=== PATIENT | female | born 1985 | race Caucasian/White ===

== ENCOUNTER 2017-07-11 23:26 | Emergency (ER) | payer SELFPAY ==
[~2017-07-11] VITALS: Ht 157.5 cm; Wt 66.0 kg
[~2017-07-11 23:26] MED LIST: CIPR750T10 PO; LORTA5 PO
[2017-07-11 23:28] VITALS: BP 103/57; PULSE 124; RESP 16; TEMP 102.4; O2SAT 99
--- NOTE | 2017-07-12 02:20 | PD ---
HPI Chief Complaint: Skin Problem Time Seen by Provider: 02:15 Travel History International Travel<30 days: No Contact w/Intl Traveler<30days: No Traveled to known affect area: No History of Present Illness HPI Patient has a abscess on the extensor aspect of her right forearm with an eschar in the center. Possibly from IVDA abuse, PT HAS FEVER AT TRIAGE OF 102 WITH NO OTHER SOURCE FOR FEVER DENIES SORE THROAT AND NO URI OR UTI SYMPTOMS , She has abscess 4 cm raised tender PFSH Past Medical History Autoimmune Disease: No Cancer: No Cardiovascular Problems: No Diminished Hearing: No Endocrine: No Genitourinary: No Immune Disorder: No Musculoskeletal: No Neurologic: No Psychiatric: No Reproductive: No Respiratory: No ?: Unknown : 3 Para: 2 Tubal Ligation: Yes Past Surgical History AICD: No Arteriovenous Shunt: No Section: Yes Gynecologic Surgery: Yes (tubal ligation) Insulin Pump: No Joint Replacement: No Pacemaker: No Other Surgery: Yes Social History Alcohol Use: No (denies) Tobacco Use: No (denies current use) Substance Use: Yes (HEROIN IV) Allergies-Medications (Allergen,Severity, Reaction): Coded Allergies: cyclobenzaprine (Unverified Allergy, Severe, N/V, 07/11/17) Reported Meds & Prescriptions Reported Meds & Active Scripts Active Ibuprofen 600 Mg Tab 600 Mg PO Q6H PRN Clindamycin (Clindamycin HCl) 300 Mg Cap 300 Mg PO TID Review of Systems Except as stated in HPI: all other systems reviewed are Neg Skin: Positive Other (abscess right forearm) Physical Exam Narrative GENERAL: somnolent arm abscess fever 102 SKIN: Warm and dry. HEAD: Atraumatic. Normocephalic. EYES: Pupils equal and round. No scleral icterus. No injection or drainage. ENT: No nasal bleeding or discharge. Mucous membranes pink and moist. NECK: Trachea midline. No JVD. CARDIOVASCULAR: Regular rate and rhythm. RESPIRATORY: No accessory muscle use. Clear to auscultation. Breath sounds equal bilaterally. GASTROINTESTINAL: Abdomen soft, non-tender, nondistended. Hepatic and splenic margins not palpable. MUSCULOSKELETAL: Extremities right arm abscess 4 cm extensor surface. NEUROLOGICAL: Awake and alert. No obvious cranial nerve deficits. Motor grossly within normal limits. Five out of 5 muscle strength in the arms and legs. Normal speech. PSYCHIATRIC: Appropriate mood and affect; insight and judgment normal. Data Data Last Documented VS Vital Signs Date Time Temp Pulse Resp B/P (MAP) Pulse Ox O2 Delivery O2 Flow Rate FiO2 07/12/17 04:50 99.9 07/12/17 02:59 115 20 99 Room Air Orders Orders Complete Blood Count With Diff (07/12/17 03:00) Comprehensive Metabolic Panel (07/12/17 03:00) Lactic Acid (07/12/17 03:00) Vancomycin Inj (Vancomycin Inj) (07/12/17 03:30) Acetaminophen (Tylenol) (07/12/17 03:45) Ketorolac Inj (Toradol Inj) (07/12/17 04:15) Labs Laboratory Tests Test 07/12/17 03:15 White Blood Count 11.1 TH/MM3 Red Blood Count 3.92 MIL/MM3 Hemoglobin 10.4 GM/DL Hematocrit 31.3 % Mean Corpuscular Volume 79.8 FL Mean Corpuscular Hemoglobin 26.4 PG Mean Corpuscular Hemoglobin Concent 33.1 % Red Cell Distribution Width 15.6 % Platelet Count 394 TH/MM3 Mean Platelet Volume 7.6 FL Neutrophils (%) (Auto) 80.2 % Lymphocytes (%) (Auto) 12.9 % Monocytes (%) (Auto) 6.3 % Eosinophils (%) (Auto) 0.2 % Basophils (%) (Auto) 0.4 % Neutrophils # (Auto) 8.9 TH/MM3 Lymphocytes # (Auto) 1.4 TH/MM3 Monocytes # (Auto) 0.7 TH/MM3 Eosinophils # (Auto) 0.0 TH/MM3 Basophils # (Auto) 0.0 TH/MM3 CBC Comment DIFF FINAL Differential Comment Blood Urea Nitrogen 10 MG/DL Creatinine 0.96 MG/DL Random Glucose 101 MG/DL Total Protein 7.4 GM/DL Albumin 2.8 GM/DL Calcium Level 8.4 MG/DL Alkaline Phosphatase 109 U/L Aspartate Amino Transf (AST/SGOT) 34 U/L Alanine Aminotransferase (ALT/SGPT) 19 U/L Total Bilirubin 1.0 MG/DL Sodium Level 132 MEQ/L Potassium Level 4.2 MEQ/L Chloride Level 98 MEQ/L Carbon Dioxide Level 27.8 MEQ/L Anion Gap 6 MEQ/L Estimat Glomerular Filtration Rate 67 ML/MIN Lactic Acid Level 0.9 mmol/L MDM Medical Decision Making Medical Screen Exam Complete: Yes Emergency Medical Condition: Yes Differential Diagnosis abscess vs cellulitis vs insect bite vs IVDA accident other FB needle Narrative Course I and D with wick packing and covered with gauze and 1 dose Vanco 1 gram and clindamycin PO and 48 hr wound check wick removal Diagnosis Primary Impression: Abscess Patient Instructions: Abscess (ED), General Instructions Additional Instructions: Take the clindamycin 3 times a day for 10 day Come back to the ER in 2 days to have the wick removed from your abscess . In 2 days come to ER for a wound check by the ER.. Leave the wick in place for 2 days and to come back to ER . Scripts Lactobacillus (Acidophilus Probiotic) 100 Mg (1 Billion Cell) Cap 1 CAP PO TID, #30 Prov: Agustin Rain MD 07/12/17 Ibuprofen (Ibuprofen) 600 Mg Tab 600 MG PO Q6H Y for Pain/Inflammation, #40 TAB 0 Refills Prov: Agustin Rain MD 07/12/17 Clindamycin (Clindamycin) 300 Mg Cap 300 MG PO TID for Infection, #30 CAP 0 Refills Prov: Agustin Rain MD 07/12/17 Disposition: 01 DISCHARGE HOME Condition: Critical Agustin Rain MD Jul 12, 2017 02:20
[2017-07-12 02:59] VITALS: PULSE 115; RESP 20; TEMP 103; O2SAT 99
[2017-07-12 03:30] LABS: AUTOMATED NEUTROPHIL # 8.9 TH/MM3 (1.8-7.7); BASOPHIL % 0.4 % (0.0-2.0); EOSINOPHIL % 0.2 % (0.0-4.0); HEMATOCRIT 31.3 % (35.0-46.0); HEMOGLOBIN 10.4 GM/DL (11.6-15.3); LYMPH % 12.9 % (9.0-44.0); LYMPHOCYTE # 1.4 TH/MM3 (1.0-4.8); MEAN CELL VOLUME 79.8 FL (80.0-100.0); MEAN CORPUSCULAR HEMOGLOBIN 26.4 PG (27.0-34.0); MEAN CORPUSCULAR HGB CONC 33.1 % (32.0-36.0); MEAN PLATELET VOLUME 7.6 FL (7.0-11.0); MONO % 6.3 % (0.0-8.0); MONOCYTE # 0.7 TH/MM3 (0-0.9); NEUT % 80.2 % (16.0-70.0); PLATELET COUNT 394 TH/MM3 (150-450); RED BLOOD COUNT 3.92 MIL/MM3 (4.00-5.30); RED CELL DISTRIBUTION WIDTH 15.6 % (11.6-17.2); WHITE BLOOD COUNT 11.1 TH/MM3 (4.0-11.0)
[2017-07-12] MEDS ORDERED: VANCOMYCIN INJ 1,000 MG in SODIUM CHLOR 0.9% 250 ML INJ 250 ML IV ONE (03:30)
[2017-07-12 03:44] LABS: ALKALINE PHOSPHATASE 109 U/L (45-117); TOTAL PROTEIN 7.4 GM/DL (6.4-8.2)
[2017-07-12] MEDS ORDERED: ACETAMINOPHEN 325 MG TAB PO ONE (03:45)
[2017-07-12 03:49] LABS: ALBUMIN 2.8 GM/DL (3.4-5.0); ALT (GPT) 19 U/L (10-53); AST (GOT) 34 U/L (15-37); BICARBONATE 27.8 MEQ/L (21.0-32.0); BLOOD UREA NITROGEN 10 MG/DL (7-18); CALCIUM 8.4 MG/DL (8.5-10.1); CHLORIDE 98 MEQ/L (98-107); CREATININE 0.96 MG/DL (0.50-1.00); GLOMERULAR FILTRATION RATE 67 ML/MIN (>89); GLUCOSE,RANDOM 101 MG/DL (74-106); SODIUM (NA) 132 MEQ/L (136-145)
[2017-07-12 04:14] VITALS: TEMP 102
[2017-07-12] MEDS ORDERED: KETOROLAC TROMETHAMINE 30 MG/ML (IVP) VIAL IV PUSH ONE (04:15)
[2017-07-12 04:50] VITALS: TEMP 99.9
[2017-07-12] MEDS ORDERED: IBUP-232 PO (05:59)
[2017-07-12] MEDS ORDERED: CLIN300C5 PO (05:59)
[2017-07-12] MEDS ORDERED: ACID100C PO (06:06)
== END 2017-07-12 06:16 | disposition home or self-care (01) ==
LOC: NEPE 23:26
DX: L02.413 Cutaneous abscess of right upper limb (principal)
CPT/HCPCS: 10061; 80053; 83605; 85025; 96365; 96375; 99284; J1885; J3370; J7050

== ENCOUNTER 2017-09-20 02:55 | Inpatient (IN) | payer SELFPAY ==
[~2017-09-20] VITALS: Ht 157.5 cm; Wt 57.6 kg
[~2017-09-20 02:55] MED LIST changes: +ACID100C PO; -CIPR750T10 PO; +CLIN300C5 PO; +IBUP-232 PO; -LORTA5 PO
[2017-09-20 03:04] VITALS: BP 137/80; PULSE 96; RESP 12; TEMP 98.5; O2SAT 100
[2017-09-20] MEDS ORDERED: PIPERACIL-TAZO 3.375 GM PREMIX 50 ML IV ONE (03:30)
[2017-09-20] MEDS ORDERED: VANCOMYCIN INJ 1,000 MG in SODIUM CHLOR 0.9% 250 ML INJ 250 ML IV ONE (03:30)
[2017-09-20 03:54] LABS: BASOPHIL % 0.5 % (0.0-2.0); EOSINOPHIL % 0.4 % (0.0-4.0); HEMATOCRIT 33.7 % (35.0-46.0); HEMOGLOBIN 11.3 GM/DL (11.6-15.3); LYMPH % 21.7 % (9.0-44.0); LYMPHOCYTE # 1.6 TH/MM3 (1.0-4.8); MEAN CELL VOLUME 76.6 FL (80.0-100.0); MEAN CORPUSCULAR HEMOGLOBIN 25.6 PG (27.0-34.0); MEAN CORPUSCULAR HGB CONC 33.5 % (32.0-36.0); MONO % 9.6 % (0.0-8.0); MONOCYTE # 0.7 TH/MM3 (0-0.9); NEUT % 67.8 % (16.0-70.0); PLATELET COUNT 465 TH/MM3 (150-450); WHITE BLOOD COUNT 7.3 TH/MM3 (4.0-11.0)
--- NOTE | 2017-09-20 03:58 | PD ---
HPI Chief Complaint: Skin Problem Time Seen by Provider: 03:15 Travel History International Travel<30 days: No Contact w/Intl Traveler<30days: No Traveled to known affect area: No History of Present Illness HPI Patient presents to the emergency department with left lower extremity wound. She states that she is homeless and lives in the [facility] and believes that she was bitten by spider. Started as a lump and increased in size, but subsequently popped and has been seeping fluid. Drainage is described as white and foul-smelling. She denies fever, chills, nausea, vomiting, shortness of breath. She reports intermittent 1 month history of chest pain. It's described as tightness, sternal area, nonradiating, lasted approximately 5-10 minutes in duration, no alleviating or aggravating factors. She denies current chest pain. PFSH Past Medical History Medical History: Denies Significant Hx Autoimmune Disease: No Cancer: No Cardiovascular Problems: No Diminished Hearing: No Endocrine: No Genitourinary: No Immune Disorder: No Musculoskeletal: No Neurologic: No Psychiatric: No Reproductive: No Respiratory: No Immunizations Current: Yes ?: Not : 3 Para: 2 Tubal Ligation: Yes Past Surgical History AICD: No Arteriovenous Shunt: No Section: Yes Gynecologic Surgery: Yes (tubal ligation) Insulin Pump: No Joint Replacement: No Pacemaker: No Other Surgery: Yes Social History Alcohol Use: No (denies) Tobacco Use: No (denies current use) Substance Use: Yes (HEROIN IV, POT, OPIOIDS) Allergies-Medications (Allergen,Severity, Reaction): Coded Allergies: cyclobenzaprine (Unverified Allergy, Severe, N/V, 09/20/17) Reported Meds & Prescriptions Reported Meds & Active Scripts Active Acidophilus Probiotic (Lactobacillus) 100 Mg (1 Billion Cell) Cap 1 Cap PO TID Ibuprofen 600 Mg Tab 600 Mg PO Q6H PRN Clindamycin (Clindamycin HCl) 300 Mg Cap 300 Mg PO TID Review of Systems Except as stated in HPI: all other systems reviewed are Neg Physical Exam Narrative GENERAL: No acute distress. SKIN: Excellently 4 x 3 cm circular, fluctuant lesion the distal aspect of left leg. Surrounded by erythema. HEAD: Atraumatic. Normocephalic. EYES: Pupils equal and round. No scleral icterus. No injection or drainage. ENT: No nasal bleeding or discharge. Mucous membranes pink and moist. NECK: Trachea midline. No JVD. CARDIOVASCULAR: Regular rate and rhythm. + murmur appreciated. RESPIRATORY: No accessory muscle use. Clear to auscultation. Breath sounds equal bilaterally. GASTROINTESTINAL: Abdomen soft, non-tender, nondistended. Hepatic and splenic margins not palpable. MUSCULOSKELETAL: See skin above. NEUROLOGICAL: Awake and alert. No obvious cranial nerve deficits. Motor grossly within normal limits. Normal speech. PSYCHIATRIC: Appropriate mood and affect; insight and judgment normal. Data Data Last Documented VS Vital Signs Date Time Temp Pulse Resp B/P (MAP) Pulse Ox O2 Delivery O2 Flow Rate FiO2 09/20/17 03:04 98.5 96 12 137/80 (99) 100 Room Air Orders Orders Electrocardiogram (09/20/17 03:24) Complete Blood Count With Diff (09/20/17 03:24) Comprehensive Metabolic Panel (09/20/17 03:24) Creatine Kinase (Cpk) (09/20/17 03:24) Ckmb (Isoenzyme) Profile (09/20/17 03:24) Troponin I (09/20/17 03:24) Prothrombin Time / Inr (Pt) (09/20/17 03:24) Act Partial Throm Time (Ptt) (09/20/17 03:24) Blood Culture (09/20/17 03:24) Chest, Pa & Lat (09/20/17 03:24) Vancomycin Inj (Vancomycin Inj) (09/20/17 03:30) Piperacil-Tazo 3.375 Gm Premix (Zosyn 3. (09/20/17 03:30) Tibia/Fibula (Ap/Lat) (09/20/17 03:26) Ed Urine Pregnancytest Poc (09/20/17 03:26) CKMB (09/20/17 03:50) CKMB% (09/20/17 03:50) Aspirin (Aspirin) (09/20/17 05:00) Admit Order (Ed Use Only) (09/20/17 05:17) Wound Culture And Gram Stain (09/20/17 05:13) Vancomycin Consult Pharmacy (Vancomycin (09/20/17 05:15) Vancomycin Inj (Vancomycin Inj) (09/20/17 15:00) Piperacil-Tazo 3.375 Gm Premix (Zosyn 3. (09/20/17 09:30) Place In Observation (09/20/17 ) Vital Signs (Adult) Q4H (09/20/17 05:13) Diet Npo (09/20/17 Breakfast) Sodium Chloride 0.9% Flush (Ns Flush) (09/20/17 05:15) Sodium Chloride 0.9% Flush (Ns Flush) (09/20/17 09:00) Ondansetron Inj (Zofran Inj) (09/20/17 05:15) Basic Metabolic Panel (Bmp) (09/21/17 06:00) Complete Blood Count With Diff (09/21/17 06:00) Creatine Kinase (Cpk) (09/20/17 10:00) Creatine Kinase (Cpk) (09/20/17 16:00) Troponin I (09/20/17 10:00) Troponin I (09/20/17 16:00) Electrocardiogram (09/20/17 10:00) Electrocardiogram (09/20/17 16:00) Case Management Consult (09/20/17 05:13) Naloxone Inj (Narcan Inj) (09/20/17 05:15) Docusate Sodium-Senna (Brigitte-Colace) (09/20/17 09:00) Magnesium Hydroxide Liq (Milk Of Magnesi (09/20/17 05:15) Sennosides (Senokot) (09/20/17 05:15) Bisacodyl Supp (Dulcolax Supp) (09/20/17 05:15) Lactulose Liq (Lactulose Liq) (09/20/17 05:15) Consult Cardiology (09/20/17 ) Labs Laboratory Tests Test 09/20/17 03:50 White Blood Count 7.3 TH/MM3 Red Blood Count 4.40 MIL/MM3 Hemoglobin 11.3 GM/DL Hematocrit 33.7 % Mean Corpuscular Volume 76.6 FL Mean Corpuscular Hemoglobin 25.6 PG Mean Corpuscular Hemoglobin Concent 33.5 % Red Cell Distribution Width 16.0 % Platelet Count 465 TH/MM3 Mean Platelet Volume 7.0 FL Neutrophils (%) (Auto) 67.8 % Lymphocytes (%) (Auto) 21.7 % Monocytes (%) (Auto) 9.6 % Eosinophils (%) (Auto) 0.4 % Basophils (%) (Auto) 0.5 % Neutrophils # (Auto) 5.0 TH/MM3 Lymphocytes # (Auto) 1.6 TH/MM3 Monocytes # (Auto) 0.7 TH/MM3 Eosinophils # (Auto) 0.0 TH/MM3 Basophils # (Auto) 0.0 TH/MM3 CBC Comment DIFF FINAL Differential Comment Prothrombin Time 10.0 SEC Prothromb Time International Ratio 1.0 RATIO Activated Partial Thromboplast Time 34.7 SEC Blood Urea Nitrogen 14 MG/DL Creatinine 0.86 MG/DL Random Glucose 64 MG/DL Total Protein 8.1 GM/DL Albumin 3.4 GM/DL Calcium Level 9.0 MG/DL Alkaline Phosphatase 75 U/L Aspartate Amino Transf (AST/SGOT) 23 U/L Alanine Aminotransferase (ALT/SGPT) 18 U/L Total Bilirubin 0.6 MG/DL Sodium Level 142 MEQ/L Potassium Level 3.3 MEQ/L Chloride Level 107 MEQ/L Carbon Dioxide Level 26.6 MEQ/L Anion Gap 8 MEQ/L Estimat Glomerular Filtration Rate 76 ML/MIN Total Creatine Kinase 222 U/L Creatine Kinase MB 5.8 NG/ML Creatine Kinase MB % 2.6 % Troponin I LESS THAN 0.02 NG/ML MDM Medical Decision Making Medical Screen Exam Complete: Yes Emergency Medical Condition: Yes Interpretation(s) CBC: Hgb/HCT decreased; PLT increased; potassium and glucose decreased ECG: SR, rate 83, slight OMAYRA in II, III, AVF, V5, V6 and TWI in avL/V1/V2, Last Impressions Tibia/Fibula X-Ray 09/20/17325 Signed Impressions: Service Date/Time: September 03:40 - CONCLUSION: 1. Focal soft tissue prominence/lesion along the medial lower leg. 2. Osseous structures are intact. Simba Morse MD Chest X-Ray 09/20/174 Signed Impressions: Service Date/Time: September 03:37 - CONCLUSION: No acute cardio pulmonary process. Simba Morse MD Differential Diagnosis Abscess, Osteomyelitis, cellulitis, endocarditis, musculoskeletal chest pain, ACS Narrative Course Patient presents to the emergency department with left lower extremity abscess and surrounding cellulitis. Patient also reports intermittent chest pain for a month. Of note patient is IV drug user though she denies injecting in the affected area. Will get chest x-ray, left lower extremity x-ray, blood cultures , cbc, chem, coags. Patient given IV vancomycin and Zosyn. Also given aspirin 325 mg p.o. 0521: Patient admitted to the hospitalist. Because I&D in the ER. Last that she would get an ultrasound this morning to evaluate the lesion and if needed consult surgery as an inpatient to drain. Physician Communication Physician Communication EKG sent to Dr. Bobby and case discussed. Advised to place a formal consult and he will evaluate patient in the morning. Not concerned for acute STEMI. Diagnosis Primary Impression: Cellulitis Qualified Codes: L03.116 - Cellulitis of left lower limb Additional Impressions: Chest pain Qualified Codes: R07.9 - Chest pain, unspecified Abscess Admitting Information Admitting Physician Requests: Admit Condition: Stable Kavita Somers MD September 20, 2017 03:58
[2017-09-20 04:11] LABS: ALBUMIN 3.4 GM/DL (3.4-5.0); ALT (GPT) 18 U/L (10-53); AST (GOT) 23 U/L (15-37); BICARBONATE 26.6 MEQ/L (21.0-32.0); BLOOD UREA NITROGEN 14 MG/DL (7-18); CHLORIDE 107 MEQ/L (98-107); CREATININE 0.86 MG/DL (0.50-1.00); GLOMERULAR FILTRATION RATE 76 ML/MIN (>89); GLUCOSE,RANDOM 64 MG/DL (74-106); SODIUM (NA) 142 MEQ/L (136-145)
--- NOTE | 2017-09-20 04:12 | RADRPT ---
EXAM DATE/TIME: 09/20/2017 03:37 [facility] COMPARISON: No previous studies available for comparison. INDICATIONS : Chest pain earlier that resolved, history of chest pain. MEDICAL HISTORY : None. SURGICAL HISTORY : Tubal ligation. ENCOUNTER: Initial ACUITY: 1 day PAIN SCORE: 0/10 LOCATION: Bilateral chest FINDINGS: PA and lateral views of the chest demonstrate the lungs to be symmetrically aerated without evidence of mass, infiltrate or effusion. The cardiomediastinal contours are unremarkable. Osseous structure s are intact. CONCLUSION: No acute cardio pulmonary process. Simba Morse MD on September 20, 2017 at 4:10 Board Certified Radiologist. This report was verified electronically.
--- NOTE | 2017-09-20 04:14 | RADRPT ---
EXAM DATE/TIME: 09/20/2017 03:40 [facility] COMPARISON: No previous studies available for comparison. INDICATIONS : Ulcer on the medial side of the distal left tibia. MEDICAL HISTORY : None. SURGICAL HISTORY : Tubal ligation. ENCOUNTER: Initial ACUITY: 4 - 6 days PAIN SCORE: 3/10 LOCATION: Left tibia FINDINGS: Two view examination of the left tibia demonstrates no evidence of fracture or dislocation. Bony min eralization is normal. Soft tissue prominence along the medial lower leg. CONCLUSION: 1. Focal soft tissue prominence/lesion along the medial lower leg. 2. Osseous structures are intact. Simba Morse MD on September 20, 2017 at 4:11 Board Certified Radiologist. This report was verified electronically.
[2017-09-20 04:15] LABS: ALKALINE PHOSPHATASE 75 U/L (45-117); TOTAL BILIRUBIN ADULT 0.6 MG/DL (0.2-1.0); TOTAL PROTEIN 8.1 GM/DL (6.4-8.2); TROPONIN I LESS THAN 0.02 NG/ML (0.02-0.05)
[2017-09-20] MEDS ORDERED: ASPIRIN 325 MG TAB PO ONE (05:00)
[2017-09-20] MEDS ORDERED: SODIUM CHLORIDE 0.9% FLUSH 10 ML FLUSH IV FLUSH PRN (05:15)
[2017-09-20] MEDS ORDERED: BISACODYL 10 MG SUPP RECTAL PRN (05:15)
[2017-09-20] MEDS ORDERED: SENNOSIDES 8.6 MG TAB PO PRN (05:15)
[2017-09-20] MEDS ORDERED: LACTULOSE SYRUP 20 GM/30 ML CUP PO PRN (05:15)
[2017-09-20] MEDS ORDERED: Vancomycin Consult Pharmacy 1 EA OTHER SCH (05:15)
[2017-09-20] MEDS ORDERED: MAGNESIUM HYDROXIDE SUSP 30 ML CUP PO PRN (05:15)
[2017-09-20] MEDS ORDERED: ONDANSETRON HCL 4 MG/2 ML VIAL IVP PRN (05:15)
[2017-09-20] MEDS ORDERED: NALOXONE HCL 0.4 MG/ML AMP IV PUSH PRN (05:15)
[2017-09-20] MEDS ORDERED: D5-1/2 NS + KCL 20 MEQ INJ 1,000 ML IV SCH (05:30)
[2017-09-20 05:40] VITALS: BP 146/86; PULSE 91; RESP 16; O2SAT 99
[2017-09-20 07:08] VITALS: BP 131/85; PULSE 86; RESP 16; TEMP 98.1; O2SAT 100
[2017-09-20] MEDS: SODIUM CHLORIDE 0.9% FLUSH 10 ML FLUSH IV FLUSH SCH ×2 (09:00→22:23)
--- NOTE | 2017-09-20 09:34 | MB ---
cc: Óscar Bobby MD DATE: 09/20/2017 HISTORY OF PRESENT ILLNESS: Alaina is a 32-year-old female who presents to the emergency room complaining of mild left-sided chest pain. She is still having it this morning. She denies any fevers, chills, cough, GI or bleeding, PND, orthopnea, syncope or dizziness. PAST MEDICAL HISTORY: As per History Of Present Illness. She was noted to have a left lower extremity wound in the ER. The patient is homeless and lives in the [facility], thinks she was bitten by a spider. Otherwise, denies any fevers, chills, cough, or GI bleeding, PND, orthopnea, syncope or dizziness. 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 She is status post tubal ligation. SOCIAL HISTORY: Denies tobacco or alcohol use. She an admitted IV heroin abuser and also smokes marijuana. ALLERGIES: CYCLOBENZAPRINE. MEDICATIONS PRIOR TO ADMISSION: 1. Acidophilus. 2. Ibuprofen 600 mg p.r.n. 3. Clindamycin 300 mg t.i.d. MEDICATIONS IN THE HOSPITAL: 1. Piperacillin tazobactam. 2. Potassium supplementation. PHYSICAL EXAMINATION: VITAL SIGNS: Blood pressure 131/85, pulse 86, respiratory 16, temperature 98.1, sats 100% on room air. GENERAL: She is alert and oriented x 3, in no acute distress. NECK: Supple. No JVD. No bruit. CARDIOVASCULAR: S1, S2. No murmurs, rubs or gallops. LUNGS: Clear to auscultation bilaterally. ABDOMEN: Soft, nontender, nondistended with positive bowel sounds. EXTREMITIES: No lower extremity edema. Chest x-ray shows no acute cardiopulmonary process. Tibia-fibula x-ray: Focal soft tissue prominence/lesion along the medial lower leg. Osseous structures are intact. EKG shows normal sinus rhythm at 83 beats per minute, 1-2 mm of T-wave inversion in V1 and V2, also in lead aVL. LABORATORY: White count 7.3, hemoglobin 11.3, hematocrit 33.7, platelet count 465. Sodium 142, potassium 3.3, chloride 107, bicarbonate 26.6, BUN 14, creatinine 0.86. AST 23, ALT 18. Troponin less than 0.02. INR is 1.0. DIAGNOSES: 1. Chest pain. 2. Anemia. 3. Hypokalemia. 4. Intravenous drug abuse. 5. Cellulitis. 6. Abscess of the lower extremity. 7. Thrombocytosis. DISCUSSION: At this point in time, would trend her troponins, check a 2D echo, continue telemetry monitoring. We will followup her transient symptoms and hemodynamics and troponin, check a urine test. I will continue to follow. MD SUSHANT Coles/SB , 08:54 AM , 09:33 AM
[2017-09-20] MEDS: DOCUSATE SODIUM 50 MG/SENNA 8.6 MG TAB PO SCH ×2 (09:46→21:00)
[2017-09-20 11:42] VITALS: BP 135/87; PULSE 85; RESP 18; TEMP 98.1; O2SAT 100
[2017-09-20] MEDS ORDERED: DEXAMETHASONE SOD PHOS 4 MG/ML VIAL IV ONE (12:00)
[2017-09-20] MEDS ORDERED: PROPOFOL 200 MG/20 ML AMP IV ONE (12:00)
[2017-09-20] MEDS ORDERED: LIDOCAINE HCL 1% PF 5 ML SYRINGE OTHER ONE (12:00)
[2017-09-20] MEDS ORDERED: ONDANSETRON HCL 4 MG/2 ML VIAL IV ONE (12:00)
[2017-09-20 12:05] LABS: TROPONIN I LESS THAN 0.02 NG/ML (0.02-0.05)
[2017-09-20] MEDS: PIPERACIL-TAZO 3.375 GM PREMIX 50 ML IV SCH ×3 (12:10→22:23)
--- NOTE | 2017-09-20 12:28 | HHI.PR ---
Subjective Remarks mistaken entry. Objective Vitals Vital Signs Date Time Temp Pulse Resp B/P (MAP) Pulse Ox O2 Delivery O2 Flow Rate FiO2 09/20/17 11:42 98.1 85 18 135/87 (103) 100 09/20/17 11:42 09/20/17 07:08 98.1 86 16 131/85 (100) 100 Room Air 09/20/17 05:40 91 16 146/86 (106) 99 Room Air 09/20/17 03:04 98.5 96 12 137/80 (99) 100 Room Air I/O 09/19/17 09/19/17 09/19/17 09/20/17 09/20/17 09/20/17 07:00 15:00 23:00 07:00 15:00 23:00 Intake Total 50 ml Balance 50 ml Intake IV Total 50 ml Result Diagram: 09/20/17 0350 09/20/17 0350 Mariam Haq DO September 20, 2017 12:28 pm
--- NOTE | 2017-09-20 13:54 | PD.CONS ---
cc: Jelani Baker MD [facility] Service CONSULTATION NOTE FOR SURGICAL ATTENDING, DR. JELANI BAKER General Surgery Consult Requested By Dr. Haq Reason for Consult LEFT leg abscess in need of incision and drainage Primary Care Physician No Primary Care Physician History of Present Illness This is a 32 year old female with a known history of IVDA who presented to the ED with a worsening LEFT leg abscess. She reports she has had the abscess there for about two weeks but it started draining and had increased pain about five days ago. She denies chills. She lives in the [facility] and is not sure if this is a some sort of bite. She currently uses IV heroin and last injected herself on Sunday. She exclusively uses her bilateral upper extremities for injection. She does share needles with her boyfriend. She was recently in [facility] and tested negative for Hepatitis C. She is currently working with her Probation Office and the court for rehab placement. A General Surgery consultation has been requested. Review of Systems Constitutional: DENIES: Fatigue, Fever, Chills, Change in appetite Endocrine: DENIES: Polydipsia, Polyuria, Polyphagia Eyes: DENIES: Diplopia Ears, nose, mouth, throat: DENIES: Hearing loss Respiratory: DENIES: Apneas Cardiovascular: DENIES: Chest pain Gastrointestinal: DENIES: Abdominal pain, Nausea, Vomiting Genitourinary: DENIES: Urinary frequency Musculoskeletal: DENIES: Joint pain, Back pain Integumentary: COMPLAINS OF: Abnormal pigmentation (LEFT leg ) Hematologic/lymphatic: DENIES: Bruising Immunologic/allergic: DENIES: Eczema Neurologic: DENIES: Headache, Localized weakness Psychiatric: DENIES: Confusion, Mood changes, Depression Past Family Social History Past Medical History None Past Surgical History RIGHT forearm I&D in ED Reported Medications None Allergies: Coded Allergies: cyclobenzaprine (Unverified Allergy, Severe, N/V, 09/20/17) Active Ordered Medications Current Medications Medications (Trade) Dose Ordered Sig/Lanie Route Start Time Stop Time Status Last Admin Pharmacy Profile Note 0 ml @ 0 mls/hr UNSCH OTHER 09/20/17 05:15 Piperacillin Sod/ Tazobactam Sod 50 ml @ 100 mls/hr Q6H IV 09/20/17 10:00 09/20/17 12:10 (NS Flush) 2 ml UNSCH PRN IV FLUSH 09/20/17 05:15 (NS Flush) 2 ml BID IV FLUSH 09/20/17 09:00 (Zofran Inj) 4 mg Q6H PRN IVP 09/20/17 05:15 (Narcan Inj) 0.4 mg UNSCH PRN IV PUSH 09/20/17 05:15 (Brigitte-Colace) 1 tab BID PO 09/20/17 09:00 09/20/17 09:46 (Milk Of Magnesia Liq) 30 ml Q12H PRN PO 09/20/17 05:15 (Senokot) 17.2 mg Q12H PRN PO 09/20/17 05:15 (Dulcolax Supp) 10 mg DAILY PRN RECTAL 09/20/17 05:15 (Lactulose Liq) 30 ml DAILY PRN PO 09/20/17 05:15 Potassium Chloride/Dextrose/ Sod Cl 1,000 ml @ 100 mls/hr Q10H IV 09/20/17 05:30 09/20/17 05:47 Vancomycin HCl 1000 mg/Sodium Chloride 250 ml @ 250 mls/hr Q12H IV 09/20/17 15:00 ([facility] Ordered Lab Info) SPECIFIC LAB TO BE DRAWN:VANCOMYCIN TROUGH DATE TO... ONCE ONCE .XX 09/21/17 14:45 09/21/17 14:46 Family History Noncontributory Social History Denies tobacco use Denies ETOH use +Heroin use Patient is homeless. She has a boyfriend. Physical Exam Vital Signs Vital Signs Date Time Temp Pulse Resp B/P (MAP) Pulse Ox O2 Delivery O2 Flow Rate FiO2 09/20/17 11:42 98.1 85 18 135/87 (103) 100 09/20/17 11:42 09/20/17 07:08 98.1 86 16 131/85 (100) 100 Room Air 09/20/17 05:40 91 16 146/86 (106) 99 Room Air 09/20/17 03:04 98.5 96 12 137/80 (99) 100 Room Air Physical Exam GENERAL: 32 year old female with poor hygiene resting in bed in no acute distress. SKIN: Focused exam on LEFT leg---- about a 4 x 4 cm raised area; erythema around raised area; minimal drainage; dark necrotic looking tissue HEAD: Atraumatic. Normocephalic. EYES: Pupils equal and round. No scleral icterus. No injection or drainage. ENT: No nasal bleeding or discharge. Mucous membranes pink and moist. NECK: Trachea midline. CARDIOVASCULAR: Regular rate and rhythm. RESPIRATORY: No accessory muscle use. Clear to auscultation. Breath sounds equal bilaterally. GASTROINTESTINAL: Abdomen soft, non-tender, nondistended. MUSCULOSKELETAL: Extremities without clubbing, cyanosis, or edema. No obvious deformities. NEUROLOGICAL: Awake and alert. No obvious cranial nerve deficits. Motor grossly within normal limits. Five out of 5 muscle strength in the arms and legs. Normal speech. PSYCHIATRIC: Appropriate mood and affect; insight and judgment normal. Laboratory Laboratory Tests Test 09/20/17 03:50 09/20/17 11:10 White Blood Count 7.3 Red Blood Count 4.40 Hemoglobin 11.3 Hematocrit 33.7 Mean Corpuscular Volume 76.6 Mean Corpuscular Hemoglobin 25.6 Mean Corpuscular Hemoglobin Concent 33.5 Red Cell Distribution Width 16.0 Platelet Count 465 Mean Platelet Volume 7.0 Neutrophils (%) (Auto) 67.8 Lymphocytes (%) (Auto) 21.7 Monocytes (%) (Auto) 9.6 Eosinophils (%) (Auto) 0.4 Basophils (%) (Auto) 0.5 Neutrophils # (Auto) 5.0 Lymphocytes # (Auto) 1.6 Monocytes # (Auto) 0.7 Eosinophils # (Auto) 0.0 Basophils # (Auto) 0.0 CBC Comment DIFF FINAL Differential Comment Prothrombin Time 10.0 Prothromb Time International Ratio 1.0 Activated Partial Thromboplast Time 34.7 Blood Urea Nitrogen 14 Creatinine 0.86 Random Glucose 64 Total Protein 8.1 Albumin 3.4 Calcium Level 9.0 Alkaline Phosphatase 75 Aspartate Amino Transf (AST/SGOT) 23 Alanine Aminotransferase (ALT/SGPT) 18 Total Bilirubin 0.6 Sodium Level 142 Potassium Level 3.3 Chloride Level 107 Carbon Dioxide Level 26.6 Anion Gap 8 Estimat Glomerular Filtration Rate 76 Total Creatine Kinase 222 160 Creatine Kinase MB 5.8 Creatine Kinase MB % 2.6 Troponin I LESS THAN 0.02 LESS THAN 0.02 Date/Time Source Procedure Growth Status 09/20/17 03:50 Blood Peripheral Aerobic Blood Culture Pending Received 09/20/17 03:50 Blood Peripheral Anaerobic Blood Culture Pending Received Result Diagram: 09/20/17 0350 09/20/17 0350 Imaging Last 48 hours Impressions Tibia/Fibula X-Ray 09/20/176 Signed Impressions: Service Date/Time: September 03:40 - CONCLUSION: 1. Focal soft tissue prominence/lesion along the medial lower leg. 2. Osseous structures are intact. Simba Morse MD Chest X-Ray 09/20/17 0324 Signed Impressions: Service Date/Time: September 03:37 - CONCLUSION: No acute cardio pulmonary process. Simba Morse MD Assessment and Plan Assessment and Plan 32 year old female with LEFT leg abscess in need of I&D -Plan for OR I&D this evening -NPO -Continue Zosyn and Vanco -IVF -Obtain consents -Patient marked for surgery -Thank you for this consult; We will continue to follow Discussed Condition With Dr. Olivia Hathaway Attending Statement CONSULTATION NOTE FOR SURGICAL ATTENDING, DR. JELANI BAKER Patient seen Will need wide debridement of abscess to left lower extremity Explained to the patient Will most likely benefit from a VAC appliance I agree with above assessment and plan. The exam, history, and the medical decision-making described in the above note were completed with the assistance of the mid-level provider. I reviewed and agree with the findings presented. I attest that I had a [id number] encounter with the patient on the same day, and personally performed and documented my assessment and findings in the medical record. The following services were provided during this hospital visit: Chart data review, vital sign assessments/reviewing monitor data Review of consultations notes if present. Medication orders/review and/or management Ordering and/or reviewing lab tests Ordering and/or interpreting/reviewing x-rays and/or diagnostic studies Care of the patient and discussion of the patient with the care team Documentation time To help prompt me to consider important information that might be impacting today's encounter and assessment, Information from prior notes written by myself or my colleagues may have been "brought forward/copy and pasted" into today's note. Lillian,Sparkle B. PARKING WORKER/Director Operating PARKING WORKER September 20, 2017 13:54 Jelani Baker MD September 20, 2017 20:10
[2017-09-20] MEDS ORDERED: ACETAMINOPHEN 500 MG CPLT PO PRN (14:00)
--- NOTE | 2017-09-20 14:00 | EKG ---
Date Performed: 09/20/2017 Time Performed: 04:04:33 PTAGE: 32 years EKG: Sinus rhythm NORMAL ECG NO PREVIOUS TRACING DOCTOR: Kate Paredes Interpretating Date/Time 09/20/2017 13:57:48
--- NOTE | 2017-09-20 14:03 | HHI.HP ---
HPI Service [facility] Primary Care Physician No Primary Care Physician Admission Diagnosis Chest pain, cellulitis, abscess, IV drug use Diagnoses: Chief Complaint: Left lower extremity abscess Travel History International Travel<30 Days: No Contact w/Intl Traveler <30 Da: No Traveled to Known Affected Are: No History of Present Illness Ms. Hathaway is a pleasant 32-year-old female with a history of IV drug use who presents to the emergency department due to left lower extremity pain, abscess with drainage. Patient is homeless. She noticed a lump on her left lower extremity above ankle about 2 weeks ago. Gradually the lump started getting more erythematous. Few days ago the lesion popped and drained 4 days. She also noted the top of the wound started getting darker and darker. She has not used any antibiotics. She denies any fever or chills. Additionally, she complains of chest pressure localized without any radiation for about 3 weeks. She reports chest pressure that stays around 10 minutes that subsides. No nausea vomiting but sometimes she gets sweating. No relation to exertion. She denies any cough, abdominal pain, weight loss. No changes in bowel or bladder habits. Upon arrival temperature 98.5F pulse 96 respiration 12 blood pressure 137/80 pulse oximetry 100% on room air. Troponins 2 0.2. Review of Systems Except as stated in HPI: all other systems reviewed are Neg Past Family Social History Past Medical History IVDU Previous soft tissue abscess Past Surgical History Reported Medications Acidophilus Probiotic (Lactobacillus) 100 Mg (1 Billion Cell) Cap 1 Cap PO TID Ibuprofen 600 Mg Tab 600 Mg PO Q6H PRN Clindamycin (Clindamycin HCl) 300 Mg Cap 300 Mg PO TID Please note that patient reports not using any abx for this left lower leg infection. Allergies: Coded Allergies: cyclobenzaprine (Unverified Allergy, Severe, N/V, 09/20/17) Family History Grandparents from lung cancer. Social History Patient denies using alcohol or tobacco. She uses IV heroine. Physical Exam Vital Signs Vital Signs Date Time Temp Pulse Resp B/P (MAP) Pulse Ox O2 Delivery O2 Flow Rate FiO2 5/3/18 11:42 98.1 85 18 135/87 (103) 100 09/20/17 11:42 09/20/17 07:08 98.1 86 16 131/85 (100) 100 Room Air 09/20/17 05:40 91 16 146/86 (106) 99 Room Air 09/20/17 03:04 98.5 96 12 137/80 (99) 100 Room Air Physical Exam GENERAL: This is a well-nourished, well-developed patient, in no apparent distress. SKIN: No rashes, ecchymoses or lesions. Warm and dry. HEAD: Atraumatic. Normocephalic. No temporal or scalp tenderness. EYES: Pupils equal round and reactive. No injection or drainage. ENT: Nose without bleeding, purulent drainage or septal hematoma. Airway patent. NECK: Trachea midline. No lymphadenopathy. Supple, nontender, no meningeal signs. CARDIOVASCULAR: Regular rate and rhythm without murmurs, gallops, or rubs. No JVD. RESPIRATORY: Clear to auscultation. Breath sounds equal bilaterally. No wheezes , rales, or rhonchi. GASTROINTESTINAL: Abdomen soft, non-tender, nondistended. No guarding. MUSCULOSKELETAL: Extremities without clubbing, cyanosis, or edema. There is a circular, well-circumscribed lesion with necrosis on top, active drainage noted , surrounding erythema present. Tender to palpation around the erythema. NEUROLOGICAL: Awake and alert. Cranial nerves II through XII intact. No focal neurological deficits. Normal speech. Laboratory Laboratory Tests Test 09/20/17 03:50 09/20/17 11:10 White Blood Count 7.3 Red Blood Count 4.40 Hemoglobin 11.3 Hematocrit 33.7 Mean Corpuscular Volume 76.6 Mean Corpuscular Hemoglobin 25.6 Mean Corpuscular Hemoglobin Concent 33.5 Red Cell Distribution Width 16.0 Platelet Count 465 Mean Platelet Volume 7.0 Neutrophils (%) (Auto) 67.8 Lymphocytes (%) (Auto) 21.7 Monocytes (%) (Auto) 9.6 Eosinophils (%) (Auto) 0.4 Basophils (%) (Auto) 0.5 Neutrophils # (Auto) 5.0 Lymphocytes # (Auto) 1.6 Monocytes # (Auto) 0.7 Eosinophils # (Auto) 0.0 Basophils # (Auto) 0.0 CBC Comment DIFF FINAL Differential Comment Prothrombin Time 10.0 Prothromb Time International Ratio 1.0 Activated Partial Thromboplast Time 34.7 Blood Urea Nitrogen 14 Creatinine 0.86 Random Glucose 64 Total Protein 8.1 Albumin 3.4 Calcium Level 9.0 Alkaline Phosphatase 75 Aspartate Amino Transf (AST/SGOT) 23 Alanine Aminotransferase (ALT/SGPT) 18 Total Bilirubin 0.6 Sodium Level 142 Potassium Level 3.3 Chloride Level 107 Carbon Dioxide Level 26.6 Anion Gap 8 Estimat Glomerular Filtration Rate 76 Total Creatine Kinase 222 160 Creatine Kinase MB 5.8 Creatine Kinase MB % 2.6 Troponin I LESS THAN 0.02 LESS THAN 0.02 Date/Time Source Procedure Growth Status 09/20/17 03:50 Blood Peripheral Aerobic Blood Culture Pending Received 09/20/17 03:50 Blood Peripheral Anaerobic Blood Culture Pending Received Result Diagram: 09/20/170 09/20/17 035 Imaging Last Impressions Tibia/Fibula X-Ray 09/20/17325 Signed Impressions: Service Date/Time: September 03:40 - CONCLUSION: 1. Focal soft tissue prominence/lesion along the medial lower leg. 2. Osseous structures are intact. Simba Morse MD Chest X-Ray 09/20/174 Signed Impressions: Service Date/Time: September 03:37 - CONCLUSION: No acute cardio pulmonary process. MD Magaly Thompson VTE Risk Assessment Ramírezi VTE Risk Assessment: No/Low Risk (score <= 1) Caprini Risk Assessment Model Point Value = 1 Point Value = 2 Point Value = 3 Point Value = 5 Age 41-60 Minor surgery BMI > 25 kg/m2 Swollen legs Varicose veins or History of unexplained or recurrent spontaneous Oral contraceptives or hormone replacement Sepsis (< 1 month) Serious lung disease, including pneumonia (< 1 month) Abnormal pulmonary function Acute myocardial infarction Congestive heart failure (< 1 month) History of inflammatory bowel disease Medical patient at bed rest Age 61-74 Arthroscopic surgery Major open surgery (> 45 min) Laparoscopic surgery (> 45 min) Malignancy Confined to bed (> 72 hours) Immobilizing plaster cast Central venous access Age >= 75 History of VTE Family history of VTE Factor V Leiden Prothrombin [id number] Lupus anticoagulant Anticardiolipin antibodies Elevated serum homocysteine Heparin-induced thrombocytopenia Other congenital or acquired thrombophilia Stroke (< 1 month) Elective arthroplasty Hip, pelvis, or leg fracture Acute spinal cord injury (< 1 month) Prophylaxis Regimen Total Risk Factor Score Risk Level Prophylaxis Regimen 0-1 Low Early ambulation 2 Moderate Order ONE of the following: *Sequential Compression Device (SCD) *Heparin 5000 units SQ BID 3-4 Higher Order ONE of the following medications: *Heparin 5000 units SQ TID *Enoxaparin/Lovenox 40 mg SQ daily (WT < 150 kg, CrCl > 30 mL/min) *Enoxaparin/Lovenox 30 mg SQ daily (WT < 150 kg, CrCl > 10-29 mL/min) *Enoxaparin/Lovenox 30 mg SQ BID (WT < 150 kg, CrCl > 30 mL/min) AND/OR *Sequential Compression Device (SCD) 5 or more Highest Order ONE of the following medications: *Heparin 5000 units SQ TID (Preferred with Epidurals) *Enoxaparin/Lovenox 40 mg SQ daily (WT < 150 kg, CrCl > 30 mL/min) *Enoxaparin/Lovenox 30 mg SQ daily (WT < 150 kg, CrCl > 10-29 mL/min) *Enoxaparin/Lovenox 30 mg SQ BID (WT < 150 kg, CrCl > 30 mL/min) AND *Sequential Compression Device (SCD) Assessment and Plan Problem List: (1) Abscess ICD Code: L02.91 - Cutaneous abscess, unspecified Status: Acute (2) Hypokalemia ICD Code: E87.6 - Hypokalemia Status: Acute (3) Chest pain ICD Code: R07.9 - Chest pain, unspecified Status: Acute Assessment and Plan Ms. Hathaway is a 32-year-old female with a history of IV drug use who presented to the emergency department due to left lower extremity draining lesion with surrounding erythema. Additionally she also complains of chest pain on occasions for the last 3 weeks. Left lower extremity abscess -Continue vancomycin and Zosyn. ESR pending. -Discussed with general surgery. Patient will undergo I&D today. N.p.o. for now -Acetaminophen, tramadol for pain. Chest pain -Cardiology was consulted. Troponins are 0.02, 0.02. -Echocardiogram pending Mild hypokalemia -potassium was 3.3 admission. Will provide potassium chloride 20 mEq twice daily for 2 days. Full code. Ambulation. Consider Lovenox after surgery if prolonged hospitalization expected. Physician Certification 2 Midnight Certification Type: Admission for Inpatient Services Order for Inpatient Services The services are ordered in accordance with Medicare regulations or non- Medicare payer requirements, as applicable. In the case of services not specified as inpatient-only, they are appropriately provided as inpatient services in accordance with the 2-midnight benchmark. Estimated LOS (days): 3 days is the estimated time the patient will need to remain in the hospital, assuming treatment plan goals are met and no additional complications. Post-Hospital Plan: Home Problem Qualifiers (1) Chest pain: Qualified Codes: R07.9 - Chest pain, unspecified Mariam Haq DO September 20, 2017 2:03 pm
[2017-09-20] MEDS: traMADol HCL 50 MG TAB PO PRN ×2 (14:29→22:22)
[2017-09-20] MEDS ORDERED: VANCOMYCIN INJ 1,000 MG in SODIUM CHLOR 0.9% 250 ML INJ 250 ML IV SCH (15:00)
[2017-09-20] MEDS: VANCOMYCIN 1,000 MG/NS 250 ML IV SCH ×2 (15:26)
[2017-09-20 16:09] VITALS: BP 138/92; PULSE 76; RESP 17; TEMP 98.2; O2SAT 99
[2017-09-20] MEDS ORDERED: ACETAMINOPHEN 1000 MG/100 ML 100 ML IV ONE (17:54)
[2017-09-20] MEDS ORDERED: HYDROmorphone HCL PF 2 MG/ML VIAL ONE (17:54)
[2017-09-20] MEDS ORDERED: BUPIVACAINE/EPINEPHRINE 0.5% PF 10 ML VIAL ONE (17:57)
[2017-09-20] MEDS ORDERED: MIDAZOLAM HCL 2 MG/2 ML VIAL ONE (18:42)
[2017-09-20] MEDS ORDERED: DO NOT ADM ANY ANTICOAGULANT DRUGS PRN (19:00)
--- NOTE | 2017-09-20 19:45 | HHI.PR ---
cc: Jelani Baker MD Immediate Post Op Note Procedure Date: September 20, 2017 Pre Op Diagnosis: (1) Sepsis (2) Abscess (3) Cellulitis Post Op Diagnosis: (1) Abscess (2) Cellulitis Surgeon: Jelani Baker Gas Examiner(s): see or records Procedure: Incision and drainage and irrigation and debridement of skin subcutaneous tissue and fascia of left lower extremity abscess 5 cm Application of VAC device Findings: Necrotic skin subcutaneous tissue and fascia Anesthesia: General Drains: None IVF Patient to: PACU Patient Condition: Good Implant/Devices: SEE IMPLANT LOG (if applicable) Date/Time of Procedure: SEE SURGICAL CARE RECORD Jelani Baker MD September 20, 2017 19:45
[2017-09-20 20:00] VITALS: BP 133/85; PULSE 82; PULSE 85; RESP 18; TEMP 97.8; O2SAT 100
[2017-09-20 20:18] LABS: TROPONIN I LESS THAN 0.02 NG/ML (0.02-0.05)
[2017-09-20] MEDS: POTASSIUM CHLORIDE 20 MEQ CONTROLLED RELEASE TAB PO SCH (22:21)
[2017-09-20] MEDS ORDERED: LORazepam 0.5 MG TAB PO ONE (23:30)
[2017-09-21] VITALS (9 sets, daily range): BP systolic 108–126; BP diastolic 55–73; PULSE 75–97; RESP 16–18; TEMP 97.8–98.5; O2SAT 93–99
[2017-09-21] MEDS: VANCOMYCIN 1,000 MG/NS 250 ML IV SCH ×4 (03:35→15:11)
[2017-09-21] MEDS: PIPERACIL-TAZO 3.375 GM PREMIX 50 ML IV SCH ×4 (04:43→21:52)
[2017-09-21 07:39] LABS: AUTOMATED NEUTROPHIL # 5.5 TH/MM3 (1.8-7.7); BASOPHIL % 0.7 % (0.0-2.0); EOSINOPHIL % 0.3 % (0.0-4.0); HEMATOCRIT 27.5 % (35.0-46.0); HEMOGLOBIN 9.2 GM/DL (11.6-15.3); LYMPH % 14.4 % (9.0-44.0); MEAN CORPUSCULAR HEMOGLOBIN 25.8 PG (27.0-34.0); MEAN CORPUSCULAR HGB CONC 33.4 % (32.0-36.0); MEAN PLATELET VOLUME 7.5 FL (7.0-11.0); MONO % 7.3 % (0.0-8.0); MONOCYTE # 0.5 TH/MM3 (0-0.9); NEUT % 77.3 % (16.0-70.0); PLATELET COUNT 335 TH/MM3 (150-450); RED BLOOD COUNT 3.57 MIL/MM3 (4.00-5.30); RED CELL DISTRIBUTION WIDTH 15.5 % (11.6-17.2); WHITE BLOOD COUNT 7.1 TH/MM3 (4.0-11.0)
[2017-09-21 08:06] LABS: BICARBONATE 27.7 MEQ/L (21.0-32.0); CALCIUM 8.5 MG/DL (8.5-10.1); CREATININE 0.81 MG/DL (0.50-1.00)
--- NOTE | 2017-09-21 09:11 | MP ---
cc: Jelani Baker MD, Joseph D MD DATE OF OPERATION: 09/20/2017 PREOPERATIVE DIAGNOSIS: Abscess to the left anterior milner 5 cm. POSTOPERATIVE DIAGNOSIS: Abscess to the left anterior milner 5 cm. PROCEDURE PERFORMED: Radical debridement of skin, subcutaneous tissue, drainage of abscess, incision and drainage and irrigation and debridement of abscess 5 cm left lower extremity. Application of VAC device to cover 5 cm defect ANESTHESIA: General. SURGEON: Dr. Baker. INDICATIONS: This is a pleasant 32-year-old female who developed an abscess of her left lower leg. I was asked to drain this. PROCEDURE: Patient taken to operating room, placed in the supine position. After anesthesia, her left leg was prepped with Betadine. She is already on antibiotics. A time-out is done. We simply sharply debride the necrotic skin just underlying this and a fair amount of purulent material was obtained which was cultured. The necrotic skin, subcutaneous tissue and fascia were sharply debrided with sharp knives and scissors. Once normal appearing tissue was encountered, we cauterized the bleeding oozing edges. It was then irrigated with saline and with Betadine. It is somewhat of a circular 5 cm defect. After the necrotic subcutaneous tissue, skin, and fascia is completely removed, we then cut a VAC sponge to fit inside the defect and the VAC appliance was applied in typical fashion up to 120 mmHg suction. The patient tolerated the procedure well and had no immediate postop complications. Jelani Baker MD JDB/DL , 08:40 AM , 09:11 AM MARINO
[2017-09-21] MEDS: POTASSIUM CHLORIDE 20 MEQ CONTROLLED RELEASE TAB PO SCH ×2 (09:38→21:51)
[2017-09-21] MEDS: SODIUM CHLORIDE 0.9% FLUSH 10 ML FLUSH IV FLUSH SCH ×2 (09:38→21:52)
[2017-09-21] MEDS: DOCUSATE SODIUM 50 MG/SENNA 8.6 MG TAB PO SCH ×2 (09:38→21:00)
[2017-09-21] MEDS ORDERED: LORazepam 2 MG/ML VIAL IV PUSH PRN ×4 (10:15)
[2017-09-21] MEDS ORDERED: FLUMAZENIL 0.5 MG/5 ML VIAL IV PUSH PRN (10:15)
--- NOTE | 2017-09-21 10:18 | HHI.PR ---
Subjective Remarks Follow-up abscess. The patient is reporting pain in the right leg. She states that the tramadol is not helping. General surgery contacted me expressing concern that the patient may be starting to go through withdrawals. She did receive Ativan overnight, which she states helped her symptoms somewhat. Objective Vitals Vital Signs Date Time Temp Pulse Resp B/P (MAP) Pulse Ox O2 Delivery O2 Flow Rate FiO2 09/21/17 08:00 98.3 82 18 111/61 (78) 93 09/21/17 04:00 84 09/21/17 04:00 98.1 79 16 126/73 (90) 99 09/21/17 00:00 97.8 75 16 115/71 (86) 99 09/21/17 00:00 81 09/20/17 20:00 82 09/20/17 20:00 Room Air 09/20/17 20:00 97.8 85 18 133/85 (101) 100 09/20/17 19:02 97.4 85 18 142/92 (109) 92 Room Air 09/20/17 18:45 94 18 109/61 (77) 98 09/20/17 18:35 97.4 73 18 100/54 (69) 98 Nasal Cannula 2 09/20/17 16:09 98.2 76 17 138/92 (107) 99 09/20/17 15:29 18 09/20/17 11:42 98.1 85 18 135/87 (103) 100 09/20/17 11:42 I/O 09/20/17 09/20/17 09/20/17 09/21/17 09/21/17 09/21/17 07:00 15:00 23:00 07:00 15:00 23:00 Intake Total 50 ml 950 ml 750 ml 1400 ml Output Total 5 ml Balance 50 ml 950 ml 745 ml 1400 ml Intake Oral 1100 ml IV Total 50 ml 950 ml 750 ml 300 ml Output Estimated Blood Loss 5 ml # Voids 6 Result Diagram: 09/21/17 0658 09/21/17 0658 Imaging Last Impressions Tibia/Fibula X-Ray 09/20/17 0326 Signed Impressions: Service Date/Time: September 03:40 - CONCLUSION: 1. Focal soft tissue prominence/lesion along the medial lower leg. 2. Osseous structures are intact. Simba Morse MD Chest X-Ray 09/20/17 0324 Signed Impressions: Service Date/Time: September 03:37 - CONCLUSION: No acute cardio pulmonary process. Simba Morse MD Objective Remarks General: No acute distress. Mildly tremulous. Heart: Regular rate and rhythm. No murmur. Lungs: Clear to auscultation bilaterally. No wheezes, rales, or rhonchi. Breathing is nonlabored. Abdomen: Soft, nontender, nondistended. Extremities: No lower extremity edema. Wound VAC in place on anterior left lower leg. Psych: Alert and oriented. Neuro: Normal speech. No focal deficits noted. Procedures 09/20/17 incision and drainage with wound VAC placement Urinary Catheter: No Vascular Central Line Catheter: No A/P Problem List: (1) Abscess ICD Code: L02.91 - Cutaneous abscess, unspecified Status: Acute (2) Hypokalemia ICD Code: E87.6 - Hypokalemia Status: Acute (3) Chest pain ICD Code: R07.9 - Chest pain, unspecified Status: Acute Assessment and Plan 1. Left lower extremity abscess: Continue vancomycin, Zosyn. Status post incision and drainage with placement of wound VAC. Appreciate general surgery recommendations. Continue pain control. 2. Chest pain: Serial cardiac enzymes are negative. Echocardiogram is pending. Cardiology consult is pending. 3. Mild hypokalemia: Improved with supplementation. 4. IV drug abuse: Patient admits to using heroin, most recently the night before admission. Caution with narcotics. Withdrawal precautions. Lorazepam as needed. 5. DVT prophylaxis: Lovenox. Problem Qualifiers (1) Chest pain: Qualified Codes: R07.9 - Chest pain, unspecified Aj Mcghee MD September 21, 2017 10:17
--- NOTE | 2017-09-21 10:32 | HHI.PR ---
Subjective Subjective Notes DAILY PROGRESS NOTE FOR SURGICAL ATTENDING, DR. JELANI BAKER Patient concerned she will go into withdrawal Objective Vitals/I&O Vital Signs Date Time Temp Pulse Resp B/P (MAP) Pulse Ox O2 Delivery O2 Flow Rate FiO2 09/21/17 08:00 Room Air 09/21/17 08:00 98.3 82 18 111/61 (78) 93 09/20/17 18:35 2 Labs Laboratory Tests Test 09/20/17 11:10 09/20/17 14:01 09/20/17 19:28 09/21/17 06:58 Total Creatine Kinase 160 125 Troponin I LESS THAN 0.02 LESS THAN 0.02 Erythrocyte Sedimentation Rate 63 White Blood Count 7.1 Red Blood Count 3.57 Hemoglobin 9.2 Hematocrit 27.5 Mean Corpuscular Volume 77.0 Mean Corpuscular Hemoglobin 25.8 Mean Corpuscular Hemoglobin Concent 33.4 Red Cell Distribution Width 15.5 Platelet Count 335 Mean Platelet Volume 7.5 Neutrophils (%) (Auto) 77.3 Lymphocytes (%) (Auto) 14.4 Monocytes (%) (Auto) 7.3 Eosinophils (%) (Auto) 0.3 Basophils (%) (Auto) 0.7 Neutrophils # (Auto) 5.5 Lymphocytes # (Auto) 1.0 Monocytes # (Auto) 0.5 Eosinophils # (Auto) 0.0 Basophils # (Auto) 0.0 CBC Comment DIFF FINAL Differential Comment Blood Urea Nitrogen 12 Creatinine 0.81 Random Glucose 114 Calcium Level 8.5 Sodium Level 140 Potassium Level 3.7 Chloride Level 105 Carbon Dioxide Level 27.7 Anion Gap 7 Estimat Glomerular Filtration Rate 82 Date/Time Source Procedure Growth Status 09/20/17 03:50 Blood Peripheral Aerobic Blood Culture Pending Received 09/20/17 03:50 Blood Peripheral Anaerobic Blood Culture Pending Received 09/20/17 16:26 Wound Leg Gram Stain - Final Resulted 09/20/17 16:26 Wound Leg Wound Culture Pending Resulted Radiology Last 48 hours Impressions Tibia/Fibula X-Ray 09/20/17325 Signed Impressions: Service Date/Time: September 03:40 - CONCLUSION: 1. Focal soft tissue prominence/lesion along the medial lower leg. 2. Osseous structures are intact. Simba Morse MD Chest X-Ray 09/20/174 Signed Impressions: Service Date/Time: September 03:37 - CONCLUSION: No acute cardio pulmonary process. Simba Morse MD Cardiovascular: Regular Lungs: Clear Abdomen: Non-distended, Non-tender Extremities: Other Narrative Exam LEFT leg Wound Vac in place with good seal A/P Assessment and Plan 32 year old female POD1 I&D LLE abscess with Wound Vac application -Continue Wound Vac -Regular diet -Pain control -If patient decided to leave AMA---okay to remove Wound Vac and transition to wet to dry dressings Attending Statement NOTE FOR SURGICAL ATTENDING, DR. JELANI BAKER I agree with above assessment and plan. Continue VAC therapy Plan to change back on Sunday The following services were provided during this hospital visit: Chart data review, vital sign assessments/reviewing monitor data Review of consultations notes if present. Medication orders/review and/or management Ordering and/or reviewing lab tests Ordering and/or interpreting/reviewing x-rays and/or diagnostic studies Care of the patient and discussion of the patient with the care team Documentation time To help prompt me to consider important information that might be impacting today's encounter and assessment, Information from prior notes written by myself or my colleagues may have been "brought forward/copy and pasted" into today's note. Sparkle Snyder/Union Carpenter PERFECTO September 21, 2017 10:32 Jelani Baker MD September 21, 2017 17:47
--- NOTE | 2017-09-21 10:52 | PD.CARD.PN ---
Subjective Subjective Remarks denies chest pain Objective Medications Current Medications Medications (Trade) Dose Ordered Sig/Lanie Route Start Time Stop Time Status Last Admin Pharmacy Profile Note 0 ml @ 0 mls/hr UNSCH OTHER 09/20/17 05:15 Piperacillin Sod/ Tazobactam Sod 50 ml @ 100 mls/hr Q6H IV 09/20/17 10:00 09/21/17 09:38 (NS Flush) 2 ml UNSCH PRN IV FLUSH 09/20/17 05:15 (NS Flush) 2 ml BID IV FLUSH 09/20/17 09:00 09/21/17 09:38 (Zofran Inj) 4 mg Q6H PRN IVP 09/20/17 05:15 (Narcan Inj) 0.4 mg UNSCH PRN IV PUSH 09/20/17 05:15 (Brigitte-Colace) 1 tab BID PO 09/20/17 09:00 09/21/17 09:38 (Milk Of Magnesia Liq) 30 ml Q12H PRN PO 09/20/17 05:15 (Senokot) 17.2 mg Q12H PRN PO 09/20/17 05:15 (Dulcolax Supp) 10 mg DAILY PRN RECTAL 09/20/17 05:15 (Lactulose Liq) 30 ml DAILY PRN PO 09/20/17 05:15 Vancomycin HCl 1000 mg/Sodium Chloride 250 ml @ 250 mls/hr Q12H IV 09/20/17 15:00 09/21/17 03:35 ([facility] Ordered Lab Info) SPECIFIC LAB TO BE DRAWN:VANCOMYCIN TROUGH DATE TO... ONCE ONCE .XX 09/21/17 14:45 09/21/17 14:46 (Tylenol) 500 mg Q4H PRN PO 09/20/17 14:00 (KCl) 20 meq Q12HR PO 09/20/17 21:00 09/22/17 20:59 09/21/17 09:38 ([facility] Nursing Information) ALL NURSING DEPARTME... UNSCH PRN .XX 09/20/17 19:00 09/21/17 18:59 (Lovenox Inj) 40 mg Q24H SQ 09/21/17 10:15 UNV ([place] 5-325 Mg) 1 tab Q6H PRN PO 09/21/17 10:15 UNV (Romazicon Inj) 0.2 mg Q1M PRN IV PUSH 09/21/17 10:15 (Ativan) 1 mg Q4H PRN PO 09/21/17 10:15 (Ativan Inj) 1 mg Q4H PRN IV PUSH 09/21/17 10:15 (Ativan) 2 mg Q2H PRN PO 09/21/17 10:15 (Ativan Inj) 2 mg Q2H PRN IV PUSH 09/21/17 10:15 (Ativan Inj) 2 mg Q1H PRN IV PUSH 09/21/17 10:15 (Ativan Inj) 2 mg Q15M PRN IV PUSH 09/21/17 10:15 Vital Signs / I&O Vital Signs Date Time Temp Pulse Resp B/P (MAP) Pulse Ox O2 Delivery O2 Flow Rate FiO2 09/21/17 08:00 Room Air 09/21/17 08:00 98.3 82 18 111/61 (78) 93 09/21/17 04:00 84 09/21/17 04:00 98.1 79 16 126/73 (90) 99 09/21/17 00:00 97.8 75 16 115/71 (86) 99 09/21/17 00:00 81 09/20/17 20:00 82 09/20/17 20:00 Room Air 09/20/17 20:00 97.8 85 18 133/85 (101) 100 09/20/17 19:02 97.4 85 18 142/92 (109) 92 Room Air 09/20/17 18:45 94 18 109/61 (77) 98 09/20/17 18:35 97.4 73 18 100/54 (69) 98 Nasal Cannula 2 09/20/17 16:09 98.2 76 17 138/92 (107) 99 09/20/17 15:29 18 09/20/17 11:42 98.1 85 18 135/87 (103) 100 09/20/17 11:42 I/O 09/20/17 09/20/17 09/20/17 09/21/17 09/21/17 09/21/17 07:00 15:00 23:00 07:00 15:00 23:00 Intake Total 50 ml 950 ml 750 ml 1400 ml Output Total 5 ml Balance 50 ml 950 ml 745 ml 1400 ml Intake Oral 1100 ml IV Total 50 ml 950 ml 750 ml 300 ml Output Estimated Blood Loss 5 ml # Voids 6 Laboratory GENERAL: SKIN: Warm and dry. HEAD: Normocephalic. EYES: No scleral icterus. No injection or drainage. NECK: Supple, trachea midline. No JVD or lymphadenopathy. CARDIOVASCULAR: Regular rate and rhythm without murmurs, gallops, or rubs. RESPIRATORY: Breath sounds equal bilaterally. No accessory muscle use. GASTROINTESTINAL: Abdomen soft, non-tender, nondistended. MUSCULOSKELETAL: No cyanosis, or edema. BACK: Nontender without obvious deformity. No CVA tenderness. Laboratory Tests Test 09/20/17 11:10 09/20/17 14:01 09/20/17 19:28 09/21/17 06:58 Total Creatine Kinase 160 U/L 125 U/L Troponin I LESS THAN 0.02 NG/ML LESS THAN 0.02 NG/ML Erythrocyte Sedimentation Rate 63 mm/hr White Blood Count 7.1 TH/MM3 Red Blood Count 3.57 MIL/MM3 Hemoglobin 9.2 GM/DL Hematocrit 27.5 % Mean Corpuscular Volume 77.0 FL Mean Corpuscular Hemoglobin 25.8 PG Mean Corpuscular Hemoglobin Concent 33.4 % Red Cell Distribution Width 15.5 % Platelet Count 335 TH/MM3 Mean Platelet Volume 7.5 FL Neutrophils (%) (Auto) 77.3 % Lymphocytes (%) (Auto) 14.4 % Monocytes (%) (Auto) 7.3 % Eosinophils (%) (Auto) 0.3 % Basophils (%) (Auto) 0.7 % Neutrophils # (Auto) 5.5 TH/MM3 Lymphocytes # (Auto) 1.0 TH/MM3 Monocytes # (Auto) 0.5 TH/MM3 Eosinophils # (Auto) 0.0 TH/MM3 Basophils # (Auto) 0.0 TH/MM3 CBC Comment DIFF FINAL Differential Comment Blood Urea Nitrogen 12 MG/DL Creatinine 0.81 MG/DL Random Glucose 114 MG/DL Calcium Level 8.5 MG/DL Sodium Level 140 MEQ/L Potassium Level 3.7 MEQ/L Chloride Level 105 MEQ/L Carbon Dioxide Level 27.7 MEQ/L Anion Gap 7 MEQ/L Estimat Glomerular Filtration Rate 82 ML/MIN Assessment and Plan Problem List: (1) Abscess ICD Codes: L02.91 - Cutaneous abscess, unspecified Status: Acute (2) Cellulitis ICD Codes: L03.90 - Cellulitis, unspecified Status: Acute (3) Chest pain ICD Codes: R07.9 - Chest pain, unspecified Status: Acute Assessment and Plan 1.) Chest pain - resolved, neg troponin Problem Qualifiers (1) Cellulitis: Qualified Codes: L03.116 - Cellulitis of left lower limb (2) Chest pain: Qualified Codes: R07.9 - Chest pain, unspecified Óscar Bobby MD September 21, 2017 10:52
[2017-09-21] MEDS: ENOXAPARIN SODIUM 40 MG/0.4 ML SYRINGE SQ SCH (13:28)
[2017-09-21] MEDS: ACETAMINOPHEN/HYDROcodone 325 MG/5 MG TAB PO PRN ×2 (13:28→21:51)
[2017-09-21] MEDS ORDERED: PHARMACY ORDERED LAB ONE (14:45)
--- NOTE | 2017-09-21 20:48 | EKG ---
Date Performed: 09/20/2017 Time Performed: 22:12:37 PTAGE: 32 years EKG: Sinus rhythm NORMAL ECG Since the PREVIOUS TRACING , no significant change noted PREVIOUS TRACIN09/20/2017 04.04 DOCTOR: Lexie Gonzales Interpretating Date/Time 09/21/2017 16:49:52
[2017-09-22] VITALS: BP 100/56; PULSE 71; PULSE 79; RESP 18; TEMP 98.3; O2SAT 96
[2017-09-22] MEDS: VANCOMYCIN 1,000 MG/NS 250 ML IV SCH ×4 (03:29→15:03)
[2017-09-22 04:00] VITALS: BP 98/62; PULSE 75; PULSE 76; RESP 16; TEMP 98.4; O2SAT 98
[2017-09-22] MEDS: PIPERACIL-TAZO 3.375 GM PREMIX 50 ML IV SCH ×4 (04:17→21:23)
[2017-09-22] MEDS: SODIUM CHLORIDE 0.9% FLUSH 10 ML FLUSH IV FLUSH SCH ×2 (07:29→21:23)
[2017-09-22] MEDS: POTASSIUM CHLORIDE 20 MEQ CONTROLLED RELEASE TAB PO SCH (07:58)
[2017-09-22] MEDS: DOCUSATE SODIUM 50 MG/SENNA 8.6 MG TAB PO SCH ×2 (07:58→21:00)
[2017-09-22 08:00] VITALS: BP 118/83; PULSE 82; RESP 20; TEMP 98.7; O2SAT 100
[2017-09-22] MEDS: ACETAMINOPHEN/HYDROcodone 325 MG/5 MG TAB PO PRN ×3 (08:00→21:23)
[2017-09-22 08:53] LABS: AUTOMATED NEUTROPHIL # 3.6 TH/MM3 (1.8-7.7); BASOPHIL # 0.1 TH/MM3 (0-0.2); BASOPHIL % 1.2 % (0.0-2.0); EOSINOPHIL # 0.1 TH/MM3 (0-0.4); EOSINOPHIL % 2.2 % (0.0-4.0); HEMATOCRIT 30.1 % (35.0-46.0); HEMOGLOBIN 9.7 GM/DL (11.6-15.3); LYMPH % 18.7 % (9.0-44.0); LYMPHOCYTE # 0.9 TH/MM3 (1.0-4.8); MEAN CELL VOLUME 78.2 FL (80.0-100.0); MEAN CORPUSCULAR HEMOGLOBIN 25.2 PG (27.0-34.0); MEAN CORPUSCULAR HGB CONC 32.2 % (32.0-36.0); MEAN PLATELET VOLUME 7.3 FL (7.0-11.0); MONO % 4.8 % (0.0-8.0); MONOCYTE # 0.2 TH/MM3 (0-0.9); NEUT % 73.1 % (16.0-70.0); PLATELET COUNT 320 TH/MM3 (150-450); RED BLOOD COUNT 3.85 MIL/MM3 (4.00-5.30); RED CELL DISTRIBUTION WIDTH 15.9 % (11.6-17.2); WHITE BLOOD COUNT 4.9 TH/MM3 (4.0-11.0)
[2017-09-22 09:16] LABS: BICARBONATE 29.4 MEQ/L (21.0-32.0); CALCIUM 8.8 MG/DL (8.5-10.1); CREATININE 0.86 MG/DL (0.50-1.00)
--- NOTE | 2017-09-22 10:42 | PD.CARD.PN ---
Subjective Subjective Remarks denies chest pain, leg feels better, alert in nad Objective Medications Current Medications Medications (Trade) Dose Ordered Sig/Lanie Route Start Time Stop Time Status Last Admin Pharmacy Profile Note 0 ml @ 0 mls/hr UNSCH OTHER 09/20/17 05:15 Piperacillin Sod/ Tazobactam Sod 50 ml @ 100 mls/hr Q6H IV 09/20/17 10:00 09/22/17 09:11 (NS Flush) 2 ml UNSCH PRN IV FLUSH 09/20/17 05:15 (NS Flush) 2 ml BID IV FLUSH 09/20/17 09:00 09/22/17 07:29 (Zofran Inj) 4 mg Q6H PRN IVP 09/20/17 05:15 (Narcan Inj) 0.4 mg UNSCH PRN IV PUSH 09/20/17 05:15 (Brigitte-Colace) 1 tab BID PO 09/20/17 09:00 09/22/17 07:58 (Milk Of Magnesia Liq) 30 ml Q12H PRN PO 09/20/17 05:15 (Senokot) 17.2 mg Q12H PRN PO 09/20/17 05:15 (Dulcolax Supp) 10 mg DAILY PRN RECTAL 09/20/17 05:15 (Lactulose Liq) 30 ml DAILY PRN PO 09/20/17 05:15 Vancomycin HCl 1000 mg/Sodium Chloride 250 ml @ 250 mls/hr Q12H IV 09/20/17 15:00 09/22/17 03:29 (Tylenol) 500 mg Q4H PRN PO 09/20/17 14:00 (KCl) 20 meq Q12HR PO 09/20/17 21:00 09/22/17 20:59 09/22/17 07:58 (Lovenox Inj) 40 mg Q24H SQ 09/21/17 11:00 09/21/17 13:28 ([place] 5-325 Mg) 1 tab Q6H PRN PO 09/21/17 10:15 09/22/17 08:00 (Romazicon Inj) 0.2 mg Q1M PRN IV PUSH 09/21/17 10:15 (Ativan) 1 mg Q4H PRN PO 09/21/17 10:15 (Ativan Inj) 1 mg Q4H PRN IV PUSH 09/21/17 10:15 (Ativan) 2 mg Q2H PRN PO 09/21/17 10:15 (Ativan Inj) 2 mg Q2H PRN IV PUSH 09/21/17 10:15 (Ativan Inj) 2 mg Q1H PRN IV PUSH 09/21/17 10:15 (Ativan Inj) 2 mg Q15M PRN IV PUSH 09/21/17 10:15 ([facility] Ordered Lab Info) SPECIFIC LAB TO BE CARLITOS... ONCE ONCE .XX 09/23/17 14:45 09/23/17 14:46 Vital Signs / I&O Vital Signs Date Time Temp Pulse Resp B/P (MAP) Pulse Ox O2 Delivery O2 Flow Rate FiO2 09/22/17 08:00 98.7 82 20 118/83 (95) 100 09/22/17 04:00 98.4 76 16 98/62 (74) 98 09/22/17 04:00 75 09/22/17 00:00 98.3 79 18 100/56 (71) 96 09/22/17 00:00 71 09/21/17 20:00 Room Air 09/21/17 20:00 92 09/21/17 20:00 98.5 91 17 111/55 (73) 96 09/21/17 16:10 90 09/21/17 16:00 98.0 97 18 119/69 (86) 95 09/21/17 16:00 Room Air 09/21/17 12:38 98.1 94 18 108/65 (79) 99 09/21/17 12:00 76 09/21/17 12:00 Room Air I/O 09/21/17 09/21/17 09/21/17 09/22/17 09/22/17 09/22/17 07:00 15:00 23:00 07:00 15:00 23:00 Intake Total 1400 ml 530 ml 720 ml Balance 1400 ml 530 ml 720 ml Intake Oral 1100 ml 480 ml 420 ml IV Total 300 ml 50 ml 300 ml # Voids 6 3 3 # Bowel Movements 0 Physical Exam GENERAL: SKIN: Warm and dry. HEAD: Normocephalic. EYES: No scleral icterus. No injection or drainage. NECK: Supple, trachea midline. No JVD or lymphadenopathy. CARDIOVASCULAR: Regular rate and rhythm without murmurs, gallops, or rubs. RESPIRATORY: Breath sounds equal bilaterally. No accessory muscle use. GASTROINTESTINAL: Abdomen soft, non-tender, nondistended. MUSCULOSKELETAL: No cyanosis, or edema. BACK: Nontender without obvious deformity. No CVA tenderness. Laboratory Laboratory Tests Test 09/21/17 14:14 09/22/17 08:17 Vancomycin Level Trough 10.3 MCG/ML White Blood Count 4.9 TH/MM3 Red Blood Count 3.85 MIL/MM3 Hemoglobin 9.7 GM/DL Hematocrit 30.1 % Mean Corpuscular Volume 78.2 FL Mean Corpuscular Hemoglobin 25.2 PG Mean Corpuscular Hemoglobin Concent 32.2 % Red Cell Distribution Width 15.9 % Platelet Count 320 TH/MM3 Mean Platelet Volume 7.3 FL Neutrophils (%) (Auto) 73.1 % Lymphocytes (%) (Auto) 18.7 % Monocytes (%) (Auto) 4.8 % Eosinophils (%) (Auto) 2.2 % Basophils (%) (Auto) 1.2 % Neutrophils # (Auto) 3.6 TH/MM3 Lymphocytes # (Auto) 0.9 TH/MM3 Monocytes # (Auto) 0.2 TH/MM3 Eosinophils # (Auto) 0.1 TH/MM3 Basophils # (Auto) 0.1 TH/MM3 CBC Comment DIFF FINAL Differential Comment Blood Urea Nitrogen 10 MG/DL Creatinine 0.86 MG/DL Random Glucose 86 MG/DL Calcium Level 8.8 MG/DL Sodium Level 142 MEQ/L Potassium Level 4.2 MEQ/L Chloride Level 106 MEQ/L Carbon Dioxide Level 29.4 MEQ/L Anion Gap 7 MEQ/L Estimat Glomerular Filtration Rate 76 ML/MIN Assessment and Plan Problem List: (1) Abscess ICD Codes: L02.91 - Cutaneous abscess, unspecified Status: Acute (2) Cellulitis ICD Codes: L03.90 - Cellulitis, unspecified Status: Acute (3) Chest pain ICD Codes: R07.9 - Chest pain, unspecified Status: Acute Assessment and Plan 1.) Chest pain - resolved, neg troponin Problem Qualifiers (1) Cellulitis: Qualified Codes: L03.116 - Cellulitis of left lower limb (2) Chest pain: Qualified Codes: R07.9 - Chest pain, unspecified Óscar Bboby MD September 22, 2017 10:42
[2017-09-22] MEDS: ENOXAPARIN SODIUM 40 MG/0.4 ML SYRINGE SQ SCH (11:04)
[2017-09-22 12:00] VITALS: BP 138/80; PULSE 88; RESP 20; TEMP 98.7; O2SAT 99
--- NOTE | 2017-09-22 14:39 | HHI.PR ---
Subjective Remarks Follow up abscess. Pain is improving. Requesting Ativan. Objective Vitals Vital Signs Date Time Temp Pulse Resp B/P (MAP) Pulse Ox O2 Delivery O2 Flow Rate FiO2 09/22/17 08:00 98.7 82 20 118/83 (95) 100 09/22/17 04:00 98.4 76 16 98/62 (74) 98 09/22/17 04:00 75 09/22/17 00:00 98.3 79 18 100/56 (71) 96 09/22/17 00:00 71 09/21/17 20:00 Room Air 09/21/17 20:00 92 09/21/17 20:00 98.5 91 17 111/55 (73) 96 09/21/17 16:10 90 09/21/17 16:00 98.0 97 18 119/69 (86) 95 09/21/17 16:00 Room Air I/O 09/21/17 09/21/17 09/21/17 09/22/17 09/22/17 09/22/17 06:59 14:59 22:59 06:59 14:59 22:59 Intake Total 1450 ml 530 ml 720 ml 100 ml Balance 1450 ml 530 ml 720 ml 100 ml Intake Oral 1100 ml 480 ml 420 ml IV Total 350 ml 50 ml 300 ml 100 ml # Voids 6 3 3 # Bowel Movements 0 Result Diagram: 09/22/17 0817 09/22/17 0817 Imaging Last Impressions Tibia/Fibula X-Ray 09/20/176 Signed Impressions: Service Date/Time: September 03:40 - CONCLUSION: 1. Focal soft tissue prominence/lesion along the medial lower leg. 2. Osseous structures are intact. Simba Morse MD Chest X-Ray 09/20/17 0324 Signed Impressions: Service Date/Time: September 03:37 - CONCLUSION: No acute cardio pulmonary process. Simba Morse MD Objective Remarks Examined in the presence of the nurse. General: No acute distress. Mildly tremulous. Heart: Regular rate and rhythm. No murmur. Lungs: Clear to auscultation bilaterally. No wheezes, rales, or rhonchi. Breathing is nonlabored. Abdomen: Soft, nontender, nondistended. Extremities: No lower extremity edema. Wound VAC in place on anterior left lower leg. Psych: Alert and oriented. Neuro: Normal speech. No focal deficits noted. Procedures 09/20/17 incision and drainage with wound VAC placement Urinary Catheter: No Vascular Central Line Catheter: No A/P Problem List: (1) Abscess ICD Code: L02.91 - Cutaneous abscess, unspecified Status: Acute (2) Hypokalemia ICD Code: E87.6 - Hypokalemia Status: Acute (3) Chest pain ICD Code: R07.9 - Chest pain, unspecified Status: Acute Assessment and Plan 1. Left lower extremity abscess: Continue vancomycin, Zosyn. Status post incision and drainage with placement of wound VAC. Appreciate general surgery recommendations. Continue pain control. Wound culture growing normal skin radha. Blood cultures are negative so far. 2. Chest pain: Serial cardiac enzymes are negative. Echocardiogram ordered, but not done yet. Appreciate cardiology recommendations. 3. Mild hypokalemia: Improved with supplementation. 4. IV drug abuse: Patient admits to using heroin, most recently the night before admission. Caution with narcotics. Withdrawal precautions. Lorazepam as needed. 5. DVT prophylaxis: Lovenox. Problem Qualifiers (1) Chest pain: Qualified Codes: R07.9 - Chest pain, unspecified Aj Mcghee MD September 22, 2017 14:39
[2017-09-22] MEDS: LORazepam 2 MG TAB PO PRN ×2 (15:25→16:00)
[2017-09-22 16:00] VITALS: BP 130/82; PULSE 80; RESP 20; TEMP 98.2; O2SAT 100
[2017-09-22 20:00] VITALS: BP 131/84; PULSE 81; PULSE 96; RESP 19; TEMP 98.4; O2SAT 100
[2017-09-22] MEDS: LORazepam 1 MG TAB PO PRN (21:27)
[2017-09-23] VITALS: BP 128/82; PULSE 108; PULSE 110; RESP 19; TEMP 98.3; O2SAT 99
[2017-09-23 04:00] VITALS: BP 125/89; PULSE 85; PULSE 98; RESP 20; TEMP 98.3; O2SAT 99
[2017-09-23] MEDS: PIPERACIL-TAZO 3.375 GM PREMIX 50 ML IV SCH ×4 (04:16→21:21)
[2017-09-23] MEDS: VANCOMYCIN 1,000 MG/NS 250 ML IV SCH ×2 (04:34)
[2017-09-23] MEDS: ACETAMINOPHEN/HYDROcodone 325 MG/5 MG TAB PO PRN ×4 (04:34→22:45)
[2017-09-23] MEDS: LORazepam 1 MG TAB PO PRN ×3 (04:35→21:20)
[2017-09-23 08:00] VITALS: BP 136/65; PULSE 102; PULSE 93; RESP 20; TEMP 98.1; O2SAT 99
[2017-09-23] MEDS: DOCUSATE SODIUM 50 MG/SENNA 8.6 MG TAB PO SCH ×2 (09:00→21:00)
[2017-09-23] MEDS: SODIUM CHLORIDE 0.9% FLUSH 10 ML FLUSH IV FLUSH SCH ×2 (09:12→21:00)
--- NOTE | 2017-09-23 09:45 | PD.CARD.PN ---
Subjective Subjective Remarks denies chest pain, leg feels better, alert in nad Objective Medications Current Medications Medications (Trade) Dose Ordered Sig/Lanie Route Start Time Stop Time Status Last Admin Pharmacy Profile Note 0 ml @ 0 mls/hr UNSCH OTHER 09/20/17 05:15 Piperacillin Sod/ Tazobactam Sod 50 ml @ 100 mls/hr Q6H IV 09/20/17 10:00 09/23/17 09:15 (NS Flush) 2 ml UNSCH PRN IV FLUSH 09/20/17 05:15 (NS Flush) 2 ml BID IV FLUSH 09/20/17 09:00 09/23/17 09:12 (Zofran Inj) 4 mg Q6H PRN IVP 09/20/17 05:15 (Narcan Inj) 0.4 mg UNSCH PRN IV PUSH 09/20/17 05:15 (Brigitte-Colace) 1 tab BID PO 09/20/17 09:00 09/22/17 07:58 (Milk Of Magnesia Liq) 30 ml Q12H PRN PO 09/20/17 05:15 (Senokot) 17.2 mg Q12H PRN PO 09/20/17 05:15 (Dulcolax Supp) 10 mg DAILY PRN RECTAL 09/20/17 05:15 (Lactulose Liq) 30 ml DAILY PRN PO 09/20/17 05:15 Vancomycin HCl 1000 mg/Sodium Chloride 250 ml @ 250 mls/hr Q12H IV 09/20/17 15:00 09/23/17 04:34 (Tylenol) 500 mg Q4H PRN PO 09/20/17 14:00 (Lovenox Inj) 40 mg Q24H SQ 09/21/17 11:00 09/22/17 11:04 ([place] 5-325 Mg) 1 tab Q6H PRN PO 09/21/17 10:15 09/23/17 04:34 (Romazicon Inj) 0.2 mg Q1M PRN IV PUSH 09/21/17 10:15 (Ativan) 1 mg Q4H PRN PO 09/21/17 10:15 09/23/17 04:35 (Ativan Inj) 1 mg Q4H PRN IV PUSH 09/21/17 10:15 (Ativan) 2 mg Q2H PRN PO 09/21/17 10:15 09/22/17 16:00 (Ativan Inj) 2 mg Q2H PRN IV PUSH 09/21/17 10:15 (Ativan Inj) 2 mg Q1H PRN IV PUSH 09/21/17 10:15 (Ativan Inj) 2 mg Q15M PRN IV PUSH 09/21/17 10:15 ([facility] [place] [facility] Ordered Lab Info) SPECIFIC LAB TO BE CARLITOS... ONCE ONCE .XX 09/23/17 14:45 09/23/17 14:46 Vital Signs / I&O Vital Signs Date Time Temp Pulse Resp B/P (MAP) Pulse Ox O2 Delivery O2 Flow Rate FiO2 09/23/17 08:00 98.1 102 20 136/65 (88) 99 09/23/17 04:56 Room Air 09/23/17 04:00 85 09/23/17 04:00 98.3 98 20 125/89 (101) 99 09/23/17 00:00 Room Air 09/23/17 00:00 98.3 108 19 128/82 (97) 99 09/23/17 00:00 110 09/22/17 20:00 81 09/22/17 20:00 Room Air 09/22/17 20:00 98.4 96 19 131/84 (100) 100 09/22/17 16:00 98.2 80 20 130/82 (98) 100 09/22/17 12:00 98.7 88 20 138/80 (99) 99 I/O 09/22/17 09/22/17 09/22/17 09/23/17 09/23/17 09/23/17 07:00 15:00 23:00 07:00 15:00 23:00 Intake Total 720 ml 100 ml 1000 ml 540 ml Balance 720 ml 100 ml 1000 ml 540 ml Intake Oral 420 ml 600 ml 240 ml IV Total 300 ml 100 ml 400 ml 300 ml # Voids 3 4 3 # Bowel Movements 0 2 0 Physical Exam GENERAL: SKIN: Warm and dry. HEAD: Normocephalic. EYES: No scleral icterus. No injection or drainage. NECK: Supple, trachea midline. No JVD or lymphadenopathy. CARDIOVASCULAR: Regular rate and rhythm without murmurs, gallops, or rubs. RESPIRATORY: Breath sounds equal bilaterally. No accessory muscle use. GASTROINTESTINAL: Abdomen soft, non-tender, nondistended. MUSCULOSKELETAL: No cyanosis, or edema. BACK: Nontender without obvious deformity. No CVA tenderness. Assessment and Plan Problem List: (1) Abscess ICD Codes: L02.91 - Cutaneous abscess, unspecified Status: Acute (2) Cellulitis ICD Codes: L03.90 - Cellulitis, unspecified Status: Acute (3) Chest pain ICD Codes: R07.9 - Chest pain, unspecified Status: Acute Assessment and Plan 1.) Chest pain - resolved, neg troponin Problem Qualifiers (1) Cellulitis: Qualified Codes: L03.116 - Cellulitis of left lower limb (2) Chest pain: Qualified Codes: R07.9 - Chest pain, unspecified Óscar Bobby MD September 23, 2017 09:45
[2017-09-23] MEDS: ENOXAPARIN SODIUM 40 MG/0.4 ML SYRINGE SQ SCH (10:34)
--- NOTE | 2017-09-23 10:58 | HHI.PR ---
Subjective Subjective Notes no acute issues, no fever, pain controlled Objective Vitals/I&O Vital Signs Date Time Temp Pulse Resp B/P (MAP) Pulse Ox O2 Delivery O2 Flow Rate FiO2 09/23/17 08:00 93 09/23/17 08:00 98.1 20 136/65 (88) 99 09/23/17 08:00 Room Air 2.00 Labs Date/Time Source Procedure Growth Status 09/20/17 03:50 Blood Peripheral Aerobic Blood Culture - Preliminary NO GROWTH IN 2 DAYS Resulted 09/20/17 03:50 Blood Peripheral Anaerobic Blood Culture - Preliminary NO GROWTH IN 2 DAYS Resulted 09/20/17 16:26 Wound Leg Gram Stain - Final Complete 09/20/17 16:26 Wound Leg Wound Culture - Final HEAVY GROWTH NORMAL SKIN ASHLEY... Complete Radiology Last 48 hours Impressions Tibia/Fibula X-Ray 09/20/17325 Signed Impressions: Service Date/Time: September 03:40 - CONCLUSION: 1. Focal soft tissue prominence/lesion along the medial lower leg. 2. Osseous structures are intact. Simba Morse MD Chest X-Ray 09/20/174 Signed Impressions: Service Date/Time: September 03:37 - CONCLUSION: No acute cardio pulmonary process. Simba Morse MD Extremities: Other (LLE vac good seal serosang) A/P Assessment and Plan s/p I and D LLE Abscess with vac plan abx pain control change vac tomorrow Sedrick Alvarenga MD September 23, 2017 10:58
--- NOTE | 2017-09-23 11:10 | HHI.PR ---
Subjective Remarks Follow up abscess. Patient still having pain in the left lower leg. Denies chest pain, dyspnea. She is requesting more Ativan. Objective Vitals Vital Signs Date Time Temp Pulse Resp B/P (MAP) Pulse Ox O2 Delivery O2 Flow Rate FiO2 09/23/17 08:00 93 09/23/17 08:00 98.1 102 20 136/65 (88) 99 09/23/17 08:00 Room Air 2.00 09/23/17 04:56 Room Air 09/23/17 04:00 85 09/23/17 04:00 98.3 98 20 125/89 (101) 99 09/23/17 00:00 Room Air 09/23/17 00:00 98.3 108 19 128/82 (97) 99 09/23/17 00:00 110 09/22/17 20:00 81 09/22/17 20:00 Room Air 09/22/17 20:00 98.4 96 19 131/84 (100) 100 09/22/17 16:00 98.2 80 20 130/82 (98) 100 09/22/17 12:00 98.7 88 20 138/80 (99) 99 I/O 09/22/17 09/22/17 09/22/17 09/23/17 09/23/17 09/23/17 07:00 15:00 23:00 07:00 15:00 23:00 Intake Total 720 ml 100 ml 1000 ml 540 ml Balance 720 ml 100 ml 1000 ml 540 ml Intake Oral 420 ml 600 ml 240 ml IV Total 300 ml 100 ml 400 ml 300 ml # Voids 3 4 3 # Bowel Movements 0 2 0 Result Diagram: 09/22/1781609/22/17 08 Imaging Last Impressions Tibia/Fibula X-Ray 09/20/176 Signed Impressions: Service Date/Time: September 03:40 - CONCLUSION: 1. Focal soft tissue prominence/lesion along the medial lower leg. 2. Osseous structures are intact. Simba Morse MD Chest X-Ray 09/20/174 Signed Impressions: Service Date/Time: September 03:37 - CONCLUSION: No acute cardio pulmonary process. Simba Morse MD Objective Remarks Examined in the presence of the nurse. General: No acute distress. Mildly tremulous. Heart: Regular rate and rhythm. No murmur. Lungs: Clear to auscultation bilaterally. No wheezes, rales, or rhonchi. Breathing is nonlabored. Abdomen: Soft, nontender, nondistended. Extremities: No lower extremity edema. Wound VAC in place on anterior left lower leg. Psych: Alert and oriented. Neuro: Normal speech. No focal deficits noted. Procedures 09/20/17 incision and drainage with wound VAC placement Urinary Catheter: No Vascular Central Line Catheter: No A/P Problem List: (1) Abscess ICD Code: L02.91 - Cutaneous abscess, unspecified Status: Acute (2) Hypokalemia ICD Code: E87.6 - Hypokalemia Status: Acute (3) Chest pain ICD Code: R07.9 - Chest pain, unspecified Status: Acute Assessment and Plan 09/23/17: No change. Continue antibiotics. 1. Left lower extremity abscess: Continue vancomycin, Zosyn. Status post incision and drainage with placement of wound VAC. Appreciate general surgery recommendations. Continue pain control. Wound culture growing normal skin radha. Blood cultures are negative so far. 2. Chest pain: Serial cardiac enzymes are negative. Echocardiogram ordered, but not done yet. Appreciate cardiology recommendations. 3. Mild hypokalemia: Improved with supplementation. 4. IV drug abuse: Patient admits to using heroin, most recently the night before admission. Caution with narcotics. Withdrawal precautions. Lorazepam as needed. 5. DVT prophylaxis: Lovenox. Discharge Planning Pending clinical improvement. Problem Qualifiers (1) Chest pain: Qualified Codes: R07.9 - Chest pain, unspecified Aj Mcghee MD September 23, 2017 11:10
[2017-09-23 12:00] VITALS: BP 122/84; PULSE 95; PULSE 98; RESP 20; TEMP 97.9; O2SAT 99
[2017-09-23] MEDS ORDERED: PHARMACY ORDERED LAB ONE (14:45)
[2017-09-23 16:00] VITALS: BP 126/81; PULSE 105; PULSE 96; RESP 20; TEMP 98.4; O2SAT 98
[2017-09-23] MEDS ORDERED: VANCOMYCIN 1,000 MG/NS 250 ML IV SCH ×2 (17:00)
[2017-09-23 20:00] VITALS: BP 132/70; PULSE 82; PULSE 92; RESP 20; TEMP 98.2; O2SAT 100
[2017-09-24] VITALS (11 sets, daily range): BP systolic 105–140; BP diastolic 56–89; PULSE 71–115; RESP 16–20; TEMP 97.4–98.5; O2SAT 98–100
[2017-09-24] MEDS: PIPERACIL-TAZO 3.375 GM PREMIX 50 ML IV SCH ×4 (00:40→21:38)
[2017-09-24] MEDS: ACETAMINOPHEN/HYDROcodone 325 MG/5 MG TAB PO PRN ×3 (04:47→17:06)
[2017-09-24] MEDS ORDERED: VANCOMYCIN 1,000 MG/NS 250 ML IV SCH ×2 (08:00)
[2017-09-24 08:20] LABS: AUTOMATED NEUTROPHIL # 4.1 TH/MM3 (1.8-7.7); BASOPHIL # 0.1 TH/MM3 (0-0.2); BASOPHIL % 1.1 % (0.0-2.0); EOSINOPHIL # 0.2 TH/MM3 (0-0.4); EOSINOPHIL % 3.7 % (0.0-4.0); HEMATOCRIT 32.8 % (35.0-46.0); HEMOGLOBIN 11.1 GM/DL (11.6-15.3); LYMPHOCYTE # 1.4 TH/MM3 (1.0-4.8); MEAN CELL VOLUME 76.8 FL (80.0-100.0); MEAN CORPUSCULAR HEMOGLOBIN 26.1 PG (27.0-34.0); MEAN PLATELET VOLUME 7.4 FL (7.0-11.0); MONO % 7.3 % (0.0-8.0); MONOCYTE # 0.5 TH/MM3 (0-0.9); NEUT % 65.9 % (16.0-70.0); PLATELET COUNT 357 TH/MM3 (150-450); RED BLOOD COUNT 4.26 MIL/MM3 (4.00-5.30); RED CELL DISTRIBUTION WIDTH 16.1 % (11.6-17.2); WHITE BLOOD COUNT 6.2 TH/MM3 (4.0-11.0)
[2017-09-24 08:44] LABS: BICARBONATE 27.8 MEQ/L (21.0-32.0); CREATININE 0.71 MG/DL (0.50-1.00)
[2017-09-24] MEDS: DOCUSATE SODIUM 50 MG/SENNA 8.6 MG TAB PO SCH ×2 (08:44→21:00)
[2017-09-24 08:45] LABS: RANDOM VANCOMYCIN 1.6 COMMENT
[2017-09-24] MEDS: SODIUM CHLORIDE 0.9% FLUSH 10 ML FLUSH IV FLUSH SCH ×2 (08:45→21:38)
--- NOTE | 2017-09-24 09:06 | ECHRPT ---
Indication: Chest Pain CONCLUSIONS The left ventricular systolic function is low normal with an estimated ejection fraction in the rang e of 50- 55%. Wall thickness is normal. Normal left ventricular size. Mild mitral valve regurgitation. Mild aortic valve regurgitation. There is trace tricuspid valve regurgitation. Trivial pulmonary valve regurgitation. BP: / HR: 88 Rhythm: Sinus MEASUREMENTS (Male / Female) Normal Values Technical Quality:Fair 2D ECHO LV Diastolic Diameter PLAX 4.4 cm 4.2 - 5.9 / 3.9 - 5.3 cm LV Systolic Diameter PLAX 3.2 cm IVS Diastolic Thickness 0.8 cm 0.6 - 1.0 / 0.6 - 0.9 cm LVPW Diastolic Thickness 0.7 cm 0.6 - 1.0 / 0.6 - 0.9 cm LV Relative Wall Thickness 0.3 RV Internal Dim ED PLAX 3.6 cm LVOT Diameter 1.9 cm LA Systolic Diameter LX 3.6 cm 3.0 - 4.0 / 2.7 - 3.8 cm M-MODE Aortic Root Diameter MM 2.4 cm LA Systolic Diameter MM 3.1 cm LA Ao Ratio MM 1.3 AV Cusp Separation MM 1.6 cm DOPPLER AV Peak Velocity 138.0 cm/s AV Peak Gradient 7.6 mmHg LVOT Peak Velocity 104.0 cm/s LVOT Peak Gradient 4.3 mmHg AV Area Cont Eq pk 2.1 cm MV Area PHT 3.5 cm Mitral E Point Velocity 84.9 cm/s Mitral A Point Velocity 93.3 cm/s Mitral E to A Ratio 0.9 LV E' Lateral Velocity 11.6 cm/s Mitral E to LV E' Lateral Ratio 7.3 LV E' Septal Velocity 8.2 cm/s Mitral E to LV E' Septal Ratio 10.4 FINDINGS LEFT VENTRICLE The left ventricular systolic function is low normal with an estimated ejection fraction in the rang e of 50- 55%. Wall thickness is normal. Normal left ventricular size. RIGHT VENTRICLE Normal right ventricular size and systolic function. LEFT ATRIUM The left atrial size is normal. RIGHT ATRIUM The right atrial size is normal. ATRIAL SEPTUM Normal atrial septal thickness without atrial level shunting by limited color doppler interrogation. AORTA The aortic root and proximal ascending aorta are normal in size on limited imaging. MITRAL VALVE Mild thickening of the mitral valve leaflets. Mild mitral valve regurgitation. AORTIC VALVE Trileaflet aortic valve. Mild aortic valve regurgitation. TRICUSPID VALVE Structurally normal tricuspid valve. There is trace tricuspid valve regurgitation. PULMONARY VALVE Trivial pulmonary valve regurgitation. VESSELS The inferior vena cava is normal in size. PERICARDIUM No pericardial effusion. Nehemiah Arenas MD (Electronically Signed) Final Date:24 Sep 2017 09:05
--- NOTE | 2017-09-24 10:18 | HHI.PR ---
Subjective Remarks Follow up abscess. Pain is well controlled. No complaints at this time. Wants to go home. Objective Vitals Vital Signs Date Time Temp Pulse Resp B/P (MAP) Pulse Ox O2 Delivery O2 Flow Rate FiO2 09/24/17 07:30 98.0 88 20 113/62 (79) 100 09/24/17 04:42 71 09/24/17 04:15 Room Air 09/24/17 04:00 97.4 96 19 119/67 (84) 98 09/24/17 00:00 98.1 81 19 105/56 (72) 99 09/24/17 00:00 89 09/24/17 00:00 Room Air 09/23/17 22:28 Room Air 09/23/17 20:00 92 09/23/17 20:00 98.2 82 20 132/70 (90) 100 09/23/17 16:00 105 09/23/17 16:00 98.4 96 20 126/81 (96) 98 09/23/17 12:00 98 09/23/17 12:00 97.9 95 20 122/84 (97) 99 I/O 09/23/17 09/23/17 09/23/17 09/24/17 09/24/17 09/24/17 07:00 15:00 23:00 07:00 15:00 23:00 Intake Total 540 ml 50 ml 530 ml 480 ml Balance 540 ml 50 ml 530 ml 480 ml Intake Oral 240 ml 480 ml 480 ml IV Total 300 ml 50 ml 50 ml # Voids 3 3 2 # Bowel Movements 0 2 0 Result Diagram: 09/24/17 0757 09/24/17 0751 Imaging Last Impressions Tibia/Fibula X-Ray 09/20/17 0326 Signed Impressions: Service Date/Time: September 03:40 - CONCLUSION: 1. Focal soft tissue prominence/lesion along the medial lower leg. 2. Osseous structures are intact. Simba Morse MD Chest X-Ray 09/20/17 0324 Signed Impressions: Service Date/Time: September 03:37 - CONCLUSION: No acute cardio pulmonary process. Simba Morse MD Objective Remarks Examined in the presence of the nurse. General: No acute distress. Heart: Regular rate and rhythm. No murmur. Lungs: Clear to auscultation bilaterally. No wheezes, rales, or rhonchi. Breathing is nonlabored. Abdomen: Soft, nontender, nondistended. Extremities: No lower extremity edema. Wound VAC in place on anterior left lower leg. Psych: Alert and oriented. Neuro: Normal speech. No focal deficits noted. Procedures 09/20/17 incision and drainage with wound VAC placement Urinary Catheter: No Vascular Central Line Catheter: No A/P Problem List: (1) Abscess ICD Code: L02.91 - Cutaneous abscess, unspecified Status: Acute (2) Hypokalemia ICD Code: E87.6 - Hypokalemia Status: Acute (3) Chest pain ICD Code: R07.9 - Chest pain, unspecified Status: Acute Assessment and Plan 09/24/17: No change. Continue antibiotics. Wound vac to be changed today per general surgery. When cleared by surgery, will plan to switch to oral antibiotics for discharge. 1. Left lower extremity abscess: Continue vancomycin, Zosyn. Status post incision and drainage with placement of wound VAC. Appreciate general surgery recommendations. Continue pain control. Wound culture growing normal skin radha. Blood cultures are negative so far. 2. Chest pain: Serial cardiac enzymes are negative. Echocardiogram shows EF 50 -55%. Appreciate cardiology recommendations. 3. Mild hypokalemia: Improved with supplementation. 4. IV drug abuse: Patient admits to using heroin, most recently the night before admission. Caution with narcotics. Withdrawal precautions. Lorazepam as needed. 5. DVT prophylaxis: Lovenox. Discharge Planning Pending general surgery clearance. Problem Qualifiers (1) Chest pain: Qualified Codes: R07.9 - Chest pain, unspecified Aj Mcghee MD September 24, 2017 10:18
[2017-09-24] MEDS: ENOXAPARIN SODIUM 40 MG/0.4 ML SYRINGE SQ SCH (10:56)
--- NOTE | 2017-09-24 13:47 | PD.CARD.PN ---
Subjective Subjective Remarks denies chest pain, leg feels better, alert in nad, wants to go home Objective Medications Current Medications Medications (Trade) Dose Ordered Sig/Lanie Route Start Time Stop Time Status Last Admin Pharmacy Profile Note 0 ml @ 0 mls/hr UNSCH OTHER 09/20/17 05:15 Piperacillin Sod/ Tazobactam Sod 50 ml @ 100 mls/hr Q6H IV 09/20/17 10:00 09/24/17 10:57 (NS Flush) 2 ml UNSCH PRN IV FLUSH 09/20/17 05:15 (NS Flush) 2 ml BID IV FLUSH 09/20/17 09:00 09/24/17 08:45 (Zofran Inj) 4 mg Q6H PRN IVP 09/20/17 05:15 (Narcan Inj) 0.4 mg UNSCH PRN IV PUSH 09/20/17 05:15 (Brigitte-Colace) 1 tab BID PO 09/20/17 09:00 09/22/17 07:58 (Milk Of Magnesia Liq) 30 ml Q12H PRN PO 09/20/17 05:15 (Senokot) 17.2 mg Q12H PRN PO 09/20/17 05:15 (Dulcolax Supp) 10 mg DAILY PRN RECTAL 09/20/17 05:15 (Lactulose Liq) 30 ml DAILY PRN PO 09/20/17 05:15 (Tylenol) 500 mg Q4H PRN PO 09/20/17 14:00 (Lovenox Inj) 40 mg Q24H SQ 09/21/17 11:00 09/24/17 10:56 ([place] 5-325 Mg) 1 tab Q6H PRN PO 09/21/17 10:15 09/24/17 10:56 (Romazicon Inj) 0.2 mg Q1M PRN IV PUSH 09/21/17 10:15 (Ativan) 1 mg Q4H PRN PO 09/21/17 10:15 09/23/17 21:20 (Ativan Inj) 1 mg Q4H PRN IV PUSH 09/21/17 10:15 (Ativan) 2 mg Q2H PRN PO 09/21/17 10:15 09/22/17 16:00 (Ativan Inj) 2 mg Q2H PRN IV PUSH 09/21/17 10:15 (Ativan Inj) 2 mg Q1H PRN IV PUSH 09/21/17 10:15 (Ativan Inj) 2 mg Q15M PRN IV PUSH 09/21/17 10:15 Vancomycin HCl 750 mg/Sodium Chloride 257.5 ml @ 250 mls/hr Q8H IV 09/24/17 17:00 [place] [place] Info) SPECIFIC LAB TO BE CARLITOS... ONCE ONCE .XX 09/25/17 08:45 09/25/17 08:46 Vital Signs / I&O Vital Signs Date Time Temp Pulse Resp B/P (MAP) Pulse Ox O2 Delivery O2 Flow Rate FiO2 09/24/17 08:00 Room Air 09/24/17 07:41 80 09/24/17 07:30 98.0 88 20 113/62 (79) 100 09/24/17 04:42 71 09/24/17 04:15 Room Air 09/24/17 04:00 97.4 96 19 119/67 (84) 98 09/24/17 00:00 98.1 81 19 105/56 (72) 99 09/24/17 00:00 89 09/24/17 00:00 Room Air 09/23/17 22:28 Room Air 09/23/17 20:00 92 09/23/17 20:00 98.2 82 20 132/70 (90) 100 09/23/17 16:00 105 09/23/17 16:00 98.4 96 20 126/81 (96) 98 I/O 09/23/17 09/23/17 09/23/17 09/24/17 09/24/17 09/24/17 07:00 15:00 23:00 07:00 15:00 23:00 Intake Total 540 ml 50 ml 530 ml 480 ml Balance 540 ml 50 ml 530 ml 480 ml Intake Oral 240 ml 480 ml 480 ml IV Total 300 ml 50 ml 50 ml # Voids 3 3 2 # Bowel Movements 0 2 0 Physical Exam GENERAL: SKIN: Warm and dry. HEAD: Normocephalic. EYES: No scleral icterus. No injection or drainage. NECK: Supple, trachea midline. No JVD or lymphadenopathy. CARDIOVASCULAR: Regular rate and rhythm without murmurs, gallops, or rubs. RESPIRATORY: Breath sounds equal bilaterally. No accessory muscle use. GASTROINTESTINAL: Abdomen soft, non-tender, nondistended. MUSCULOSKELETAL: No cyanosis, or edema. BACK: Nontender without obvious deformity. No CVA tenderness. Laboratory Laboratory Tests Test 09/23/17 14:22 09/24/17 07:51 09/24/17 07:57 Vancomycin Level Trough 6.1 MCG/ML Blood Urea Nitrogen 17 MG/DL Creatinine 0.71 MG/DL Random Glucose 91 MG/DL Calcium Level 9.0 MG/DL Sodium Level 141 MEQ/L Potassium Level 4.2 MEQ/L Chloride Level 105 MEQ/L Carbon Dioxide Level 27.8 MEQ/L Anion Gap 8 MEQ/L Estimat Glomerular Filtration Rate 95 ML/MIN Random Vancomycin Level 1.6 COMMENT White Blood Count 6.2 TH/MM3 Red Blood Count 4.26 MIL/MM3 Hemoglobin 11.1 GM/DL Hematocrit 32.8 % Mean Corpuscular Volume 76.8 FL Mean Corpuscular Hemoglobin 26.1 PG Mean Corpuscular Hemoglobin Concent 34.0 % Red Cell Distribution Width 16.1 % Platelet Count 357 TH/MM3 Mean Platelet Volume 7.4 FL Neutrophils (%) (Auto) 65.9 % Lymphocytes (%) (Auto) 22.0 % Monocytes (%) (Auto) 7.3 % Eosinophils (%) (Auto) 3.7 % Basophils (%) (Auto) 1.1 % Neutrophils # (Auto) 4.1 TH/MM3 Lymphocytes # (Auto) 1.4 TH/MM3 Monocytes # (Auto) 0.5 TH/MM3 Eosinophils # (Auto) 0.2 TH/MM3 Basophils # (Auto) 0.1 TH/MM3 CBC Comment DIFF FINAL Differential Comment Assessment and Plan Problem List: (1) Abscess ICD Codes: L02.91 - Cutaneous abscess, unspecified Status: Acute (2) Cellulitis ICD Codes: L03.90 - Cellulitis, unspecified Status: Acute (3) Chest pain ICD Codes: R07.9 - Chest pain, unspecified Status: Acute Assessment and Plan 1.) Chest pain - resolved, neg troponin Problem Qualifiers (1) Cellulitis: Qualified Codes: L03.116 - Cellulitis of left lower limb (2) Chest pain: Qualified Codes: R07.9 - Chest pain, unspecified Óscar Bobby MD September 24, 2017 13:47
--- NOTE | 2017-09-24 17:13 | HHI.PR ---
cc: Jelani Boykin MD Subjective Subjective Notes DAILY PROGRESS NOTE FOR SURGICAL ATTENDING, DR. JELANI BOYKIN Resting in bed coloring Wants to go home if able Nervous about getting Wound Vac off Objective Vitals/I&O Vital Signs Date Time Temp Pulse Resp B/P (MAP) Pulse Ox O2 Delivery O2 Flow Rate FiO2 09/24/17 15:51 115 09/24/17 15:25 98.5 18 135/89 (104) 100 09/24/17 08:00 Room Air 09/23/17 08:00 2.00 Labs Laboratory Tests Test 09/24/17 07:51 09/24/17 07:57 Blood Urea Nitrogen 17 Creatinine 0.71 Random Glucose 91 Calcium Level 9.0 Sodium Level 141 Potassium Level 4.2 Chloride Level 105 Carbon Dioxide Level 27.8 Anion Gap 8 Estimat Glomerular Filtration Rate 95 Random Vancomycin Level 1.6 White Blood Count 6.2 Red Blood Count 4.26 Hemoglobin 11.1 Hematocrit 32.8 Mean Corpuscular Volume 76.8 Mean Corpuscular Hemoglobin 26.1 Mean Corpuscular Hemoglobin Concent 34.0 Red Cell Distribution Width 16.1 Platelet Count 357 Mean Platelet Volume 7.4 Neutrophils (%) (Auto) 65.9 Lymphocytes (%) (Auto) 22.0 Monocytes (%) (Auto) 7.3 Eosinophils (%) (Auto) 3.7 Basophils (%) (Auto) 1.1 Neutrophils # (Auto) 4.1 Lymphocytes # (Auto) 1.4 Monocytes # (Auto) 0.5 Eosinophils # (Auto) 0.2 Basophils # (Auto) 0.1 CBC Comment DIFF FINAL Differential Comment Date/Time Source Procedure Growth Status 09/20/17 03:50 Blood Peripheral Aerobic Blood Culture - Preliminary NO GROWTH IN 4 DAYS Resulted 09/20/17 03:50 Blood Peripheral Anaerobic Blood Culture - Preliminary NO GROWTH IN 4 DAYS Resulted 09/20/17 16:26 Wound Leg Gram Stain - Final Complete 09/20/17 16:26 Wound Leg Wound Culture - Final HEAVY GROWTH NORMAL SKIN ASHLEY... Complete Radiology Last 48 hours Impressions Tibia/Fibula X-Ray 09/20/17325 Signed Impressions: Service Date/Time: September 03:40 - CONCLUSION: 1. Focal soft tissue prominence/lesion along the medial lower leg. 2. Osseous structures are intact. Simba Morse MD Chest X-Ray 09/20/174 Signed Impressions: Service Date/Time: September 03:37 - CONCLUSION: No acute cardio pulmonary process. Simba Morse MD Cardiovascular: Regular Lungs: Clear Abdomen: Non-distended, Non-tender, BS normal Narrative Exam LEFT leg Wound Vac in place with good seal ---removed sponge--- wound bed without any exudate; clean A/P Assessment and Plan 32 year old female POD4 I&D LLE abscess with Wound Vac application -I removed Wound Vac--- patient would like to shower--- RN will pack once out of shower -Continue antibiotics -Regular diet -Pain control Attending Statement NOTE FOR SURGICAL ATTENDING, DR. JELANI BOYKIN I agree with above assessment and plan. The following services were provided during this hospital visit: Chart data review, vital sign assessments/reviewing monitor data Review of consultations notes if present. Medication orders/review and/or management Ordering and/or reviewing lab tests Ordering and/or interpreting/reviewing x-rays and/or diagnostic studies Care of the patient and discussion of the patient with the care team Documentation time To help prompt me to consider important information that might be impacting today's encounter and assessment, Information from prior notes written by myself or my colleagues may have been "brought forward/copy and pasted" into today's note. Sparkle Snyder/Applications Trainer [employer] September 24, 2017 17:13 Jelani Boykin MD September 24, 2017 19:19
[2017-09-24] MEDS: VANCOMYCIN INJ 750 MG in SODIUM CHLOR 0.9% 250 ML INJ 250 ML IV SCH (18:13)
[2017-09-25] VITALS (9 sets, daily range): BP systolic 114–132; BP diastolic 66–83; PULSE 72–102; RESP 16–20; TEMP 97.8–98.3; O2SAT 97–100
[2017-09-25] MEDS: VANCOMYCIN INJ 750 MG in SODIUM CHLOR 0.9% 250 ML INJ 250 ML IV SCH ×2 (00:07→09:44)
[2017-09-25] MEDS: PIPERACIL-TAZO 3.375 GM PREMIX 50 ML IV SCH ×3 (04:41→16:06)
[2017-09-25] MEDS: ACETAMINOPHEN/HYDROcodone 325 MG/5 MG TAB PO PRN ×2 (04:46→11:22)
[2017-09-25] MEDS ORDERED: PHARMACY ORDERED LAB ONE (08:45)
[2017-09-25] MEDS: DOCUSATE SODIUM 50 MG/SENNA 8.6 MG TAB PO SCH (09:00)
[2017-09-25] MEDS: SODIUM CHLORIDE 0.9% FLUSH 10 ML FLUSH IV FLUSH SCH (09:45)
[2017-09-25] MEDS: ENOXAPARIN SODIUM 40 MG/0.4 ML SYRINGE SQ SCH (11:23)
--- NOTE | 2017-09-25 12:03 | HHI.PR ---
cc: Jelani Boykin MD Subjective Subjective Notes DAILY PROGRESS NOTE FOR SURGICAL ATTENDING, DR. JELANI BOYKIN Patient going to get dressing removed and take a shower Wants to learn how to do dressing change and go home if able to Objective Vitals/I&O Vital Signs Date Time Temp Pulse Resp B/P (MAP) Pulse Ox O2 Delivery O2 Flow Rate FiO2 09/25/17 07:40 98.2 93 20 127/75 (92) 100 09/25/17 04:00 Room Air 09/23/17 08:00 2.00 Labs Laboratory Tests Test 09/25/17 08:30 Vancomycin Level Trough 11.5 Date/Time Source Procedure Growth Status 09/20/17 03:50 Blood Peripheral Aerobic Blood Culture - Final NO GROWTH IN 5 DAYS Complete 09/20/17 03:50 Blood Peripheral Anaerobic Blood Culture - Final NO GROWTH IN 5 DAYS Complete 09/20/17 16:26 Wound Leg Gram Stain - Final Complete 09/20/17 16:26 Wound Leg Wound Culture - Final HEAVY GROWTH NORMAL SKIN ASHLEY... Complete Radiology Last 48 hours Impressions Tibia/Fibula X-Ray 09/20/176 Signed Impressions: Service Date/Time: September 03:40 - CONCLUSION: 1. Focal soft tissue prominence/lesion along the medial lower leg. 2. Osseous structures are intact. Simba Morse MD Chest X-Ray 09/20/174 Signed Impressions: Service Date/Time: September 03:37 - CONCLUSION: No acute cardio pulmonary process. Simba Morse MD Cardiovascular: Regular Lungs: Clear Abdomen: Non-distended, Non-tender Extremities: Other Narrative Exam LEFT leg dressing in place A/P Problem List: (1) Cellulitis ICD Codes: L03.90 - Cellulitis, unspecified Status: Acute Assessment and Plan 32 year old female POD5 I&D LLE abscess with Wound Vac application -Continue BID dressing changes -Okay to shower between dressing changes---removing packing first -Continue antibiotics -Regular diet -Pain control Attending Statement NOTE FOR SURGICAL ATTENDING, DR. JELANI BOYKIN I attest that I had a [id number] encounter with the patient on the same day, and personally performed and documented my assessment and findings in the medical record. The following services were provided during this hospital visit: Chart data review, vital sign assessments/reviewing monitor data Review of consultations notes if present. Medication orders/review and/or management Ordering and/or reviewing lab tests Ordering and/or interpreting/reviewing x-rays and/or diagnostic studies Care of the patient and discussion of the patient with the care team Documentation time To help prompt me to consider important information that might be impacting today's encounter and assessment, Information from prior notes written by myself or my colleagues may have been "brought forward/copy and pasted" into today's note. Problem Qualifiers (1) Cellulitis: Qualified Codes: L03.116 - Cellulitis of left lower limb Sparkle Snyder/Taker Down PERFECTO September 25, 2017 12:03 Jelani Boykin MD September 25, 2017 12:49
--- NOTE | 2017-09-25 12:11 | PD.CARD.PN ---
Subjective Subjective Remarks denies chest pain, leg feels better, alert in nad, wants to go home Objective Medications Current Medications Medications (Trade) Dose Ordered Sig/Lanie Route Start Time Stop Time Status Last Admin Pharmacy Profile Note 0 ml @ 0 mls/hr UNSCH OTHER 09/20/17 05:15 Piperacillin Sod/ Tazobactam Sod 50 ml @ 100 mls/hr Q6H IV 09/20/17 10:00 09/25/17 11:23 (NS Flush) 2 ml UNSCH PRN IV FLUSH 09/20/17 05:15 (NS Flush) 2 ml BID IV FLUSH 09/20/17 09:00 09/25/17 09:45 (Zofran Inj) 4 mg Q6H PRN IVP 09/20/17 05:15 (Narcan Inj) 0.4 mg UNSCH PRN IV PUSH 09/20/17 05:15 (Brigitte-Colace) 1 tab BID PO 09/20/17 09:00 09/22/17 07:58 (Milk Of Magnesia Liq) 30 ml Q12H PRN PO 09/20/17 05:15 (Senokot) 17.2 mg Q12H PRN PO 09/20/17 05:15 (Dulcolax Supp) 10 mg DAILY PRN RECTAL 09/20/17 05:15 (Lactulose Liq) 30 ml DAILY PRN PO 09/20/17 05:15 (Tylenol) 500 mg Q4H PRN PO 09/20/17 14:00 (Lovenox Inj) 40 mg Q24H SQ 09/21/17 11:00 09/25/17 11:23 ([place] 5-325 Mg) 1 tab Q6H PRN PO 09/21/17 10:15 09/25/17 11:22 (Romazicon Inj) 0.2 mg Q1M PRN IV PUSH 09/21/17 10:15 (Ativan) 1 mg Q4H PRN PO 09/21/17 10:15 09/23/17 21:20 (Ativan Inj) 1 mg Q4H PRN IV PUSH 09/21/17 10:15 (Ativan) 2 mg Q2H PRN PO 09/21/17 10:15 09/22/17 16:00 (Ativan Inj) 2 mg Q2H PRN IV PUSH 09/21/17 10:15 (Ativan Inj) 2 mg Q1H PRN IV PUSH 09/21/17 10:15 (Ativan Inj) 2 mg Q15M PRN IV PUSH 09/21/17 10:15 Vancomycin HCl 750 mg/Sodium Chloride 257.5 ml @ 250 mls/hr Q8H IV 09/24/17 17:00 09/25/17 09:44 Vital Signs / I&O Vital Signs Date Time Temp Pulse Resp B/P (MAP) Pulse Ox O2 Delivery O2 Flow Rate FiO2 09/25/17 07:59 93 09/25/17 07:40 98.2 93 20 127/75 (92) 100 09/25/17 04:32 98.2 88 16 120/71 (87) 98 09/25/17 04:05 79 09/25/17 04:00 Room Air 09/25/17 00:30 72 09/25/17 00:02 97.8 78 16 114/66 (82) 97 09/25/17 00:00 Room Air 09/24/17 20:35 97.7 88 16 106/56 (73) 100 09/24/17 20:19 97 09/24/17 20:00 Room Air 09/24/17 15:51 115 09/24/17 15:25 98.5 112 18 135/89 (104) 100 I/O 09/24/17 09/24/17 09/24/17 09/25/17 09/25/17 09/25/17 07:00 15:00 23:00 07:00 15:00 23:00 Intake Total 480 ml 300 ml 1060 ml 1045.5 ml Balance 480 ml 300 ml 1060 ml 1045.5 ml Intake Oral 480 ml 960 ml 720 ml IV Total 300 ml 100 ml 325.5 ml # Voids 2 3 5 # Bowel Movements 0 2 Physical Exam GENERAL: SKIN: Warm and dry. HEAD: Normocephalic. EYES: No scleral icterus. No injection or drainage. NECK: Supple, trachea midline. No JVD or lymphadenopathy. CARDIOVASCULAR: Regular rate and rhythm without murmurs, gallops, or rubs. RESPIRATORY: Breath sounds equal bilaterally. No accessory muscle use. GASTROINTESTINAL: Abdomen soft, non-tender, nondistended. MUSCULOSKELETAL: No cyanosis, or edema. BACK: Nontender without obvious deformity. No CVA tenderness. Laboratory Laboratory Tests Test 09/25/17 08:30 Vancomycin Level Trough 11.5 MCG/ML Assessment and Plan Problem List: (1) Abscess ICD Codes: L02.91 - Cutaneous abscess, unspecified Status: Acute (2) Cellulitis ICD Codes: L03.90 - Cellulitis, unspecified Status: Acute (3) Chest pain ICD Codes: R07.9 - Chest pain, unspecified Status: Acute Assessment and Plan 1.) Chest pain - resolved, neg troponin, ef = 55%, mild mr Problem Qualifiers (1) Cellulitis: Qualified Codes: L03.116 - Cellulitis of left lower limb (2) Chest pain: Qualified Codes: R07.9 - Chest pain, unspecified Óscar Bobby MD September 25, 2017 12:11
--- NOTE | 2017-09-25 14:29 | HHI.DCPOC ---
Discharge Care Plan Diagnosis: (1) Sepsis (2) Hypokalemia (3) Chest pain (4) Cellulitis (5) Abscess Goals to Promote Your Health * To prevent worsening of your condition and complications * To maintain your health at the optimal level Directions to Meet Your Goals Take your medications as prescribed Follow your dietary instruction Follow activity as directed Keep your appointments as scheduled Take your immunizations and boosters as scheduled If your symptoms worsen call your PCP, if no PCP go to Urgent Care Center or Emergency Room Smoking is Dangerous to Your Health. Avoid second hand smoke Call the 24-hour hour crisis hotline for domestic abuse at Aj Mcghee MD September 25, 2017 14:29
[2017-09-25] MEDS ORDERED: HYDR-3516 PO (14:32)
[2017-09-25] MEDS ORDERED: BACT800T5 PO (14:32)
--- NOTE | 2017-09-25 14:34 | HHI.DS ---
Discharge Summary Admission Date September 20, 2017 at 12:48 Discharge Date: September 25, 2017 Admitting Diagnosis Chest pain, cellulitis, abscess, IV drug use (1) Abscess ICD Code: L02.91 - Cutaneous abscess, unspecified Status: Acute (2) Hypokalemia ICD Code: E87.6 - Hypokalemia Status: Acute (3) Chest pain ICD Code: R07.9 - Chest pain, unspecified Status: Acute Procedures 09/20/17 incision and drainage with wound VAC placement Brief History - From Admission Ms. Hathaway is a pleasant 32-year-old female with a history of IV drug use who presents to the emergency department due to left lower extremity pain, abscess with drainage. Patient is homeless. She noticed a lump on her left lower extremity above ankle about 2 weeks ago. Gradually the lump started getting more erythematous. Few days ago the lesion popped and drained 4 days. She also noted the top of the wound started getting darker and darker. She has not used any antibiotics. She denies any fever or chills. Additionally, she complains of chest pressure localized without any radiation for about 3 weeks. She reports chest pressure that stays around 10 minutes that subsides. No nausea vomiting but sometimes she gets sweating. No relation to exertion. She denies any cough, abdominal pain, weight loss. No changes in bowel or bladder habits. Upon arrival temperature 98.5F pulse 96 respiration 12 blood pressure 137/80 pulse oximetry 100% on room air. Troponins 2 0.2. CBC/BMP: 09/24/17 0757 09/24/17 0751 Significant Findings Laboratory Tests Test 09/23/17 14:22 09/24/17 07:51 09/24/17 07:57 09/25/17 08:30 Hemoglobin 11.1 GM/DL (11.6-15.3) Hematocrit 32.8 % (35.0-46.0) Mean Corpuscular Volume 76.8 FL (80.0-100.0) Mean Corpuscular Hemoglobin 26.1 PG (27.0-34.0) Vancomycin Level Trough 11.5 MCG/ML (5.0-10.0) Imaging Last Impressions Tibia/Fibula X-Ray 09/20/17325 Signed Impressions: Service Date/Time: September 03:40 - CONCLUSION: 1. Focal soft tissue prominence/lesion along the medial lower leg. 2. Osseous structures are intact. Simba Morse MD Chest X-Ray 09/20/174 Signed Impressions: Service Date/Time: September 03:37 - CONCLUSION: No acute cardio pulmonary process. Simba Morse MD PE at Discharge Examined in the presence of the nurse. General: No acute distress. Heart: Regular rate and rhythm. No murmur. Lungs: Clear to auscultation bilaterally. No wheezes, rales, or rhonchi. Breathing is nonlabored. Abdomen: Soft, nontender, nondistended. Extremities: No lower extremity edema. Wound VAC in place on anterior left lower leg. Psych: Alert and oriented. Neuro: Normal speech. No focal deficits noted. Pt update on day of discharge No complaints at this time. She wants to go home. States that she can do dressing changes. Hospital Course The patient was admitted for management of left lower extremity abscess. General surgery was consulted. Incision and drainage was done and wound VAC was placed. Patient was continued on IV antibiotics. Wound culture grew normal skin radha. Blood cultures were negative. Cardiology was consulted for evaluation of chest pain. Echocardiogram was done. She was cleared for discharge by cardiology. She continued to show clinical improvement throughout hospitalization. The wound VAC was removed. She was cleared for discharge by general surgery and given instructions for twice daily dressing changes. Pt Condition on Discharge: Stable Discharge Disposition: Discharge Home Discharge Time: > 30 minutes Discharge Instructions DIET: Follow Instructions for: As Tolerated, No Restrictions Activities you can perform: Regular-No Restrictions Follow up Referrals: PCP Follow-up - 1 Week Surgical - 1 Week with Jelani Baker MD New Medications: Sulfamethoxazole-Trimethoprim (Bactrim DS) 800-160 Mg Tab 1 TAB PO BID for Infection, #14 TAB 0 Refills Hydrocodone/Acetaminophen (Hydrocodone-Acetamin 5-325 mg) 5 Mg-325 Mg Tablet 1 TAB PO Q6H PRN for PAIN SCALE 5 TO 10 for 3 Days, #12 TAB 0 Refills Continued Medications: Lactobacillus (Acidophilus Probiotic) 100 Mg (1 Billion Cell) Cap 1 CAP PO TID, #30 Discontinued Medications: Clindamycin (Clindamycin) 300 Mg Cap 300 MG PO TID for Infection, #30 CAP 0 Refills Ibuprofen (Ibuprofen) 600 Mg Tab 600 MG PO Q6H PRN for Pain/Inflammation, #40 TAB 0 Refills Aj Mcghee MD September 25, 2017 14:33
== END 2017-09-25 17:43 | disposition home or self-care (01) | DRG 572 ==
LOC: NEPC 02:55 → NEDA 05:19 → INTOOBSV 05:19 → OBSVTOIN 12:48 → N04B 15:17
PROVIDERS: ADMIT Family Medicine; ATTEND Family Medicine
PROC: 2W1RX6Z Compression of Left Lower Leg using Pressure Dressing (ICD-10-PCS; 2017-09-20)
PROC: 0JBP0ZZ Excision of Left Lower Leg Subcutaneous Tissue and Fascia, Open Approach (ICD-10-PCS; principal; 2017-09-20 18:02)
DX: L02.416 Cutaneous abscess of left lower limb (principal); F11.10 Opioid abuse, uncomplicated; E87.6 Hypokalemia; Z59.0 Homelessness; F12.90 Cannabis use, unspecified, uncomplicated; D64.9 Anemia, unspecified; R07.9 Chest pain, unspecified
CPT/HCPCS: 71046; 73590; 76937; 80048; 80053; 80202; 82550; 82552; 84484; 84703; 85025; 85610; 85652; 85730; 86403; 87040; 87070; 87205; 93005; 93306; 96365; 96367; J0131; J1100; J1170; J1650; J2250; J2405; J2543; J3010; J3370; J3480; J7050